=== PATIENT | male | born 1965 | race Caucasian/White ===

== ENCOUNTER 2019-03-09 12:49 | Inpatient (IN) | payer MEDICAID ==
[2019-03-09] VITALS (9 sets, daily range): BP systolic 107–146
[~2019-03-09] VITALS: Ht 165.1 cm; Wt 143.0 kg
--- NOTE | 2019-03-09 13:00 | NUR ---
Placed in room 01 . Placed on satellite project site monitor, blood pressure machine and pulse oximeter. To gown for exam. Side rails up.
--- NOTE | 2019-03-09 13:35 | NUR ---
Pt AAOx4 presents to ED via wheelchair accompanied by sister c/o generalized weakness, "bloating," intermittent shortness of breath, increased difficulty when ambulating at home. Pt SaO2 88% on RA while laying flat. Pt positioned in high kapoor's and placed on 2L NC. SaO2 increased to 99%. Pt denies medical history as he hasn't seen a PMD in over 34 years. Pt morbidly obese. Edema noted to bilateral lower extremities. Skin dry and flaky, speaking in full sentences. No other injuries/complaints per pt/noted.
--- NOTE | 2019-03-09 13:37 | NUR ---
ER Dr. Trevino at bedside examining patient.
[2019-03-09 14:09] LABS: BASOPHILS # (AUTO) 0.1 K/uL (0.0-0.2); BASOPHILS % (AUTO) 1.2 % (0.0-2.0); EOSINOPHILS # (AUTO) 0.2 K/uL (0.0-0.4); EOSINOPHILS % (AUTO) 3.6 % (0.0-4.0); HEMATOCRIT 28.5 % (36-54); HEMOGLOBIN 9.5 g/dL (14.0-18.0); LYMPHOCYTES # (AUTO) 0.7 K/uL (1.0-5.5); LYMPHOCYTES % (AUTO) 14.2 % (20.5-51.5); MEAN CORPUSCULAR HEMOGLOBIN 31 pg (27-31); MEAN CORPUSCULAR HGB CONC 34 % (32-36); MEAN CORPUSCULAR VOLUME 93 fL (79.0-98.0); MONOCYTES # (AUTO) 0.3 K/uL (0.0-1.0); MONOCYTES % (AUTO) 6.5 % (1.7-9.3); NEUTROPHILS # (AUTO) 3.9 K/uL (1.8-7.7); NEUTROPHILS % (AUTO) 74.5 % (40.0-70.0); PLATELET COUNT (AUTO) 262 K/uL (130-430); RED BLOOD CELL COUNT(AUTO) 3.08 MIL/uL (4.2-6.2); RED CELL DISTRIBUTION WIDTH 15.7 % (9.0-15.0); WHITE BLOOD COUNT (AUTO) 5.2 K/uL (4.8-10.8)
[2019-03-09 14:20] LABS: CALCIUM 9.5 mg/dL (8.4-11.0); CHLORIDE 94 mmol/L (98-107); CREATININE 1.24 mg/dL (0.55-1.30); GLUCOSE 108 mg/dL (70-99); POTASSIUM 3.9 mmol/L (3.5-5.1); SODIUM SERUM 132 mmol/L (136-145); UREA NITROGEN, BLOOD 19 mg/dL (8-21)
[2019-03-09 14:23] LABS: ANION GAP < 3 (5-15); GFR AFRICAN AMERICAN 78 mL/min (>90)
[2019-03-09 14:26] LABS: ALANINE AMINOTRANSFERASE 51 U/L (12-78); ALBUMIN 4.3 g/dL (3.4-4.8); ASPARTATE AMINOTRANSFERASE 90 U/L (10-37); TOTAL BILIRUBIN 0.2 mg/dL (0.0-1.0)
[2019-03-09 14:30] LABS: INR 1.1 (0.80-1.20); PROTHROMBIN TIME 10.8 SECS (9.5-12.5)
--- NOTE | 2019-03-09 14:37 | NUR ---
Pt intermittently bradycardiac < 40 when pt falls asleep. When aroused, pt heart rate increases >70. Denies pain. Denies taking medication/home oxygen. Dr. Trevino notified.
--- NOTE | 2019-03-09 14:39 | NUR ---
Dr. Trevino speaking with Dr. Rodriguez
--- NOTE | 2019-03-09 15:16 | NUR ---
composite bond technician at bedside to take patient via gurney for CT scan.
[2019-03-09] MEDS ORDERED: IOHEXOL 350 mgI/mL, 150 ML INFUS..BTL IV ONE (15:23)
--- NOTE | 2019-03-09 15:32 | NUR ---
Pt returned from radiology in stable condition
--- NOTE | 2019-03-09 16:42 | NUR ---
Per monitor, SpO2 is 83% on BiPAP. RT called to bedside to assess patient.
--- NOTE | 2019-03-09 17:12 | NUR ---
Per Dr. Rodriguez, the patient will be admitted under Dr. Shyanne Lucia instead.
--- NOTE | 2019-03-09 18:01 | NUR ---
Dr. Lucia at bedside examining pt.
--- NOTE | 2019-03-09 18:53 | NUR ---
AT 1810 P.M, ADMITTED PATIENT FROM [facility] , RECEIVED NURSING REPORT FROM VIMAL Newton, THIS IS A 54 YEARS OLD MALE,CHIEF COMPLAINED HAD SHORT OF BREATH FOR 6 MONTHS, THE PAST HISTORY UNKNOWN ,DIAGNOSIS : RESPIRATORY FAILURE, ANASARCA, PATIENT IS ALERT, ORIENTED X4, VERBAL RESPONSE , ABLE TO MAKE NEEDS KNOWN, VITAL SIGN : TEMPERATURE 97.4.F, H.R 69, RESPIRATORY RATE 18, B.P 134/81 MMHG, O2 SAT. 95%, ORDERED ON BI-PAP I 12, E 6, BUR 12, FIO2 28%, GIVE PATIENT ENVIRONMENT ORIENTATION, CHG BED BATH DONE, CALL LIGHT IN REACH, RAILS UP, KEEP CLOSE MONITOR
--- NOTE | 2019-03-09 19:05 | NUR ---
WAS REPORTED TO Dr. MO, PATIENT WANT TO CHANGE TO FULL CODE, DOCTOR AWARE, ORDERED CODE STATUS : FULL CODE FOR PATIENT
--- NOTE | 2019-03-09 19:10 | NUR ---
PM SHIFT ASSESSMENT Pt easily arousable, alert and oriented. On bipap, RR even and unlabored. SR on monitor. Skin warm and dry. IV intact. Belongings at bedside. Will continue to monitor.
--- NOTE | 2019-03-09 19:23 | NUR ---
GIVE COMPLETE NURSING REPORT TO BRIDGE WORKER APPRENTICE RJuanN
[2019-03-09] MEDS: D5/0.45 NS 1,000 ML IV SCH (19:42)
--- NOTE | 2019-03-09 20:08 | NUR ---
Paged Dr. Kapil MD made aware of patients current status. New orders given.
--- NOTE | 2019-03-09 21:10 | NUR ---
Dr. Dick here to see patient. New orders received.
[2019-03-09] MEDS ORDERED: acetaZOLAMIDE 250 MG TABLET (DIAMOX) PO SCH (21:30)
[2019-03-09] MEDS ORDERED: POTASSIUM CHLORIDE 20 MEQ/PKT PACKET PO SCH (21:30)
[2019-03-09] MEDS ORDERED: FUROSEMIDE 40 MG/4 ML VIAL IVP SCH (21:30)
[2019-03-10] VITALS (24 sets, daily range): BP systolic 90–126
[2019-03-10 06:43] LABS: CALCIUM 9.2 mg/dL (8.4-11.0); CREATININE 1.1 mg/dL (0.55-1.30); POTASSIUM 3.9 mmol/L (3.5-5.1)
--- NOTE | 2019-03-10 07:12 | NUR ---
ENDORSEMENT Pt care endorsed to GABRIELLE Worthington using nursing SBAR.
--- NOTE | 2019-03-10 07:13 | NUR ---
RECEIVED NURSING REPORT FROM DHAVAL HAQUE R.N
--- NOTE | 2019-03-10 08:07 | NUR ---
PAGED Dr. JULIEN REGARDING OF ABNORMAL ABG RESULT, WAITING FOR DOCTOR CALL BACK
--- NOTE | 2019-03-10 08:15 | NUR ---
DR. JULIEN ORDERED CHANGE TO AZAP T.V 550 , RATE 20, AND FOLLOW UP ABG AFTER 1 HOUR Addendum: 03/10/19 at 0939 by Abraham Shane RN DR. JULIEN ORDERED CHANGE TO AVAPS T.V 550 , RATE 20, AND FOLLOW UP ABG AFTER 1 HOUR
--- NOTE | 2019-03-10 08:15 | NUR ---
RT NOTES BIPAP to AVAPS 550 R 20. Will monitor pt.
--- NOTE | 2019-03-10 08:28 | NUR ---
Nutrition Update Gilbert Scale 14 noted. Pt admitted for respiratory failure, anasarca. Diet: NPO BMI: 56.6 kg/m2 RD to follow per nutrition care standards.
--- NOTE | 2019-03-10 08:44 | NUR ---
AT 0835 A.M, FINISHED 2 D ECHO CARDIOGRAM AT BEDSIDE, E.F 66 %, WAS REPORTED TO AWARE, ORDERED CONSULT Dr. MASSEY, DR. MASSEY IS AWARE
[2019-03-10] MEDS: POTASSIUM CHLORIDE 20 MEQ/PKT PACKET PO SCH ×2 (09:14→22:21)
[2019-03-10] MEDS: FUROSEMIDE 40 MG/4 ML VIAL IVP SCH ×2 (09:14→22:20)
[2019-03-10] MEDS: acetaZOLAMIDE 250 MG TABLET (DIAMOX) PO SCH ×2 (09:14→22:20)
--- NOTE | 2019-03-10 09:15 | NUR ---
Call out to Dr. Lucia to report TSH > 100.
--- NOTE | 2019-03-10 10:00 | NUR ---
DR. MO ORDERED CONSULT DR. DAVILA
--- NOTE | 2019-03-10 12:30 | NUR ---
DR. JULIEN SEE PATIENT, ORDERED KEEP NPO, FOLLOW UP CBC, CMP, ABG, CHEST X-RAY IN A.M
--- NOTE | 2019-03-10 12:53 | NUR ---
Paper Rewinder Discharge Plan/ICU Assessment begun. MANAGER WELLNESS met with patient at bedside. Patient needed to be roused and had a difficult time talking. He verified that he wants to make decisions for himself and does not want MANAGER WELLNESS to phone his father or sister about discharge plans. He confirmed he want full code status. He confirmed he lives with his father. He has not had medical care for many years. He has only been able to ambulate very short distances. Patient requested MANAGER WELLNESS come back the next day to complete the assessment. Patient should be assessed for depression and will need resources, [facility] as [facility]. Will follow up.
[2019-03-10] MEDS: ACETAMINOPHEN 325 MG TABLET PO PRN (13:43)
--- NOTE | 2019-03-10 16:30 | NUR ---
AT 1623 P.M, SEE PATIENT, ORDERED FOLLOW UP LAB. T4,TSH IN A.M, AND START LEVOTHYROXINE THERAPY
[2019-03-10] MEDS ORDERED: LEVOTHYROXINE SODIUM 0.1 MG VIAL IVP ONE (16:45)
[2019-03-10] MEDS: D5/0.45 NS 1,000 ML IV SCH (17:03)
--- NOTE | 2019-03-10 18:50 | NUR ---
DR. MO SEE PATIENT , WAS SIGNED FULL CODE STATUS FOAM IN THE CHART
--- NOTE | 2019-03-10 19:16 | NUR ---
GIVE COMPLETE NURSING REPORT TO MATERIALS RECYCLER PIPPA Newotn
--- NOTE | 2019-03-10 20:00 | NUR ---
PATIENT WAS ACCEPTED AND ASSESS DONE PATIENT ALERT AND AWAKE, RESPOND TO ALL COMMANDS ON NASAL CANNULA, WAS ON BIPAP, HAD REMOVE HER SELF, NO SOB OR RESP. DISTRESS , PATIENT IS OBESITY ,WILL MOVE SELF FAIRLY WELL IN THE BED AND CAN TURN SELF TO HELP WITH HER, STABLE 2200 NOTICE LOWER LEG RED WARM TO TOUCH AND SWOLLEN FROM THE KNEE DOWN , BILATERAL FOOT ALSO SWOLLEN, STAT HIS BIG TOE WAS HURTING, THE PATIENT DOSE NOT HAVE GOUTE , PATIENT VERY NEEDED WANTING DIFFERENT THING AT INTERVALS, WILL CALL Q 30MIN-60 MIN STABLE PATIENT HAS NO TEMP. WBC IS 5.2 STABLE 0000 NO CHANGES WITH THE PATIENT 0130 COMPLETED AM CARE WAS GIVEN, PATIENT USED THE BEDPAN , HAD FILLED THE BEDPAN UP WITH VERY SOFT BROWN STOOL , ALSO THE BED WAS WET,, WHEN URINATE SOME OF THE URINE GOTTEN ON THE BED PATIENT WAS ABLE TO PULL SELF UP IN THE BED , LINEN CHANGED SKIN CLEAN ,PATIENT MORE RELAXED THAN BEFORE, RESTING , ASLEEP WILL CONTINUED WITH PLAN OF CARE, STABLE
[2019-03-11] VITALS (23 sets, daily range): BP systolic 89–130
[2019-03-11] MEDS: D5/0.45 NS 1,000 ML IV SCH (02:30)
--- NOTE | 2019-03-11 04:00 | NUR ---
PATIENT IS RESTING WITH THE BIPAP INTACT, NOTICE HEART RATE IN THE 40, STABLE NO CHEST PAIN BP ALSO LOW, 89/37 STABLE WILL CONTINUED WITH PLAN OF CARER STABLE PATIENT IS ASKING FOR SOMETHING TO EAT REMAINED NPONEED TO FOLLOW UP WITH THIS INFORMATION WITH THE DOCTOR, BENOIT CONSUMED ICE CHIP WELL BY SELF
[2019-03-11 06:39] LABS: BASOPHILS # (AUTO) 0.1 K/uL (0.0-0.2); BASOPHILS % (AUTO) 1.4 % (0.0-2.0); EOSINOPHILS # (AUTO) 0.2 K/uL (0.0-0.4); HEMATOCRIT 31.4 % (36-54); HEMOGLOBIN 10.4 g/dL (14.0-18.0); LYMPHOCYTES % (AUTO) 17.3 % (20.5-51.5); MEAN CORPUSCULAR HEMOGLOBIN 31 pg (27-31); MEAN CORPUSCULAR HGB CONC 33 % (32-36); MEAN CORPUSCULAR VOLUME 94 fL (79.0-98.0); MONOCYTES # (AUTO) 0.5 K/uL (0.0-1.0); MONOCYTES % (AUTO) 7.6 % (1.7-9.3); NEUTROPHILS # (AUTO) 4.2 K/uL (1.8-7.7); NEUTROPHILS % (AUTO) 69.7 % (40.0-70.0); RED BLOOD CELL COUNT(AUTO) 3.35 MIL/uL (4.2-6.2); RED CELL DISTRIBUTION WIDTH 15.9 % (9.0-15.0)
--- NOTE | 2019-03-11 07:50 | NUR ---
AM ASSESSMENT PT ALERT, DENIES BODY DISCOMFORT, NO SHORTNESS OF BREATH, NO NAUSEA, HELPED PT SIT UPRIGHT, ON O2 VIA NASAL CANNULA, AFEBRILE, EXTREMITIES ACTIVE ON MOTION, CELLULITIS TO LOWER EXTREMITIES, HEELS VERY DRY AND CRACKED, DRY SCAB TO LOWER LEGS SEEN, PILLOW UNDER LEGS.
[2019-03-11 07:55] LABS: ALBUMIN 4.1 g/dL (3.4-4.8); CALCIUM 9.4 mg/dL (8.4-11.0); CREATININE 1.09 mg/dL (0.55-1.30); FREE T4 (FREE THYROXINE) 0.2 ng/dl (0.8-1.5); POTASSIUM 3.7 mmol/L (3.5-5.1); TOTAL BILIRUBIN 2.1 mg/dL (0.0-1.0)
--- NOTE | 2019-03-11 08:51 | NUR ---
NUT BLANKER OPERATOR DR MASSEY AT BEDSIDE EXAMINING PT.
[2019-03-11] MEDS: POTASSIUM CHLORIDE 20 MEQ/PKT PACKET PO SCH (09:27)
[2019-03-11] MEDS: acetaZOLAMIDE 250 MG TABLET (DIAMOX) PO SCH (09:36)
[2019-03-11] MEDS ORDERED: *LOVENOX 1MG/KG Q24H/PHARMACY XX ONE (09:45)
--- NOTE | 2019-03-11 09:50 | NUR ---
RT NOTES O2 to 2L, per Dr Lima, keep sat. on the low side and BIPAP NOC and PRN if/when pt is lethargic.
--- NOTE | 2019-03-11 09:58 | NUR ---
CONSULT PAGED CONSULTING MD: Gregory WATERS CONSULTING SPECIALITY: ID SPOKE TO: SABINO DIALED: [phone] ORDERED BY; Shyanne MCCLELLAN FAXED FACE SHEET TO: [phone]
--- NOTE | 2019-03-11 10:00 | NUR ---
BENEFITS MANAGER DR JULIEN AT BEDSIDE, NEW ORDERS RECEIVED.
--- NOTE | 2019-03-11 10:10 | NUR ---
DIET. FOOD TRAY BROUGHT IN, BOWL OF OATMEAL, MILK, CRANBERRY JUICE, APPLE JUICE.
[2019-03-11] MEDS ORDERED: ENOXAPARIN SODIUM 40 MG/0.4 ML SYRINGE SUBCUT ONE (10:30)
--- NOTE | 2019-03-11 11:12 | NUR ---
SS NOTES: SOCIAL SECRETARY was referred by CM to see patient for DCP/possible depression. SOCIAL SECRETARY met with patient at bedside. Pt was alert and oriented x4. Pt was cooperative with average eye contact. Pt appeared to be disheveled with normal mood and appropriate affect. Pt is a 54 y/o single male who came in via ED due to swelling on legs. Pt states his legs have been red and swollen for 3 years. Pt states he is aware of his edema but had researched it online and remedied it himself. Pt believed that "because I am young, it would just heal on its own". Pt stated his family convinced him to come to the hospital. Pt stated in the "past few weeks, I've been losing my energy level" and lightheadedness. Pt stated he used to "walk a lot" but when pt gained weight, he "lost the desire to walk". Pt lives in a one kenisha home with 1 step to get to the front door. Pt stated he is independent with his ADL's and does not own any DME. Pt stated he used to drive 30 years ago but his drivers license was revoked due to reckless driving and alcohol related. Pt states he used to have a problem with alcohol and last intake was 15 years ago and denies drug use. Pt denies history or current mental health/depression and stated he is a "private person" and does not identify anybody as his support system. Pt states he does not have a source of income but his father helps him and is a "good provider". SOCIAL SECRETARY educated pt on the importance of follow up care and encouraged pt to call [facility] to make an appointment; pt agreed and was provided [facility] ID number. SOCIAL SECRETARY also encouraged pt the importance of providing [facility] of requirements to obtain full scope Medi-Prabhjot (provided Cristofer's phone number). SOCIAL SECRETARY provided pt with [facility] List, Outpt Mental health, [facility] phone number, phone number and Advanced Directive. No further SS needs identified at this time, but will remain available when needed. Addendum: 03/11/19 at 1141 by Hien CONTRERAS Pt does not have a [facility] of SNF or [facility] if needed.
[2019-03-11 11:59] LABS: PLATELET COUNT (AUTO) 287 K/uL (130-430)
[2019-03-11] MEDS: LEVOTHYROXINE SODIUM 0.1 MG VIAL IVP SCH (13:15)
--- NOTE | 2019-03-11 13:38 | NUR ---
Dietitian Recommendations *Continue Cardiac diet per MD. Please se Nutritional Assessment for details. HALFWAY, RD
--- NOTE | 2019-03-11 15:00 | NUR ---
LOC. SATURATION IN THE HIGH 80'S, CALLED OUT PT'S NAME, HE TURNED HIS HEAD BACK, EYES DROOPY, ENCOURAGED TO TAKE DEEP BREATHS, PT ABLE TO DEMONSTRATE WELL, SAT WENT UP TO THE NINETY'S.
--- NOTE | 2019-03-11 17:50 | NUR ---
[facility]ED PT TO ROOM 100-A, VIA BED, ON O2 AT 2L/MIN NASAL CANNULA, ALL PERSONAL BELONGINGS REMOVED FROM ICU AND TAKEN INTO ASSIGNED ROOM, BAGS TAGGED WITH PT'S NAME. CARE ENDORSED TO GABRIELLE ZEE.
--- NOTE | 2019-03-11 19:25 | NUR ---
PM SHIFT ASSESSMENT Pt is sleepy but easily arousable, alert and oriented. Pt is on O2 2L NC, RR even and unlabored. Skin warm and dry. IVF infusing. Safety precautions in place, call light within reach. Will continue to monitor.
--- NOTE | 2019-03-11 19:35 | NUR ---
Closing Notes Patient endorsed to manufacturing shift supervisor RN using SBAR format. Patient resting and in no signs of distress at this time.
[2019-03-11] MEDS ORDERED: ATROPINE SULFATE 1 MG/10 ML SYRINGE IVP ONE ×2 (19:45→19:56)
[2019-03-11] MEDS ORDERED: DOPamine PREMIX 250 ML IV PRN (19:45)
--- NOTE | 2019-03-11 19:45 | NUR ---
BRADYCARDIA Pt became bradycardic, HR in the 30's. Dr. Curtis here and ordered Atropine 0.5mg IVP stat and transfer to ICU.
--- NOTE | 2019-03-11 20:00 | NUR ---
Atropine 0.5mg IVP given per Dr. Tapia order. HR now SR in the 90's. No signs of acute distress noted. Will get patient ready for transfer to ICU.
[2019-03-11] MEDS: IPRATROPIUM/ALBUTEROL SULFATE 3 ML AMPUL.NEB (DUONEB) INH SCH ×2 (20:24→23:50)
--- NOTE | 2019-03-11 20:45 | NUR ---
TRANSFER PT TRANSFERRED FROM [facility] AT THIS TIME VIA BED. REPORT RECEIVED FROM FREDDY ANTHONY. RECEIVED PT WITH EYES OPEN, AAOX4, AND ABLE TO VERBALIZE NEEDS. PT ON 2L NC. LFA 20G TO SL, R HAND 22G INFUSING D5 1/2 NS @ 30 CC/HR. PT DENIES ANY PAIN OR DISCOMFORT AT THIS TIME. HOB ELEVATED, BED IN LOWEST POSITION, CALL LIGHT IN REACH.
--- NOTE | 2019-03-11 20:50 | NUR ---
TRANSFER Pt transferred with second RN to ICU bed 4. VSS. All belongings sent with patient. Report given bedside.
[2019-03-11] MEDS: ENOXAPARIN SODIUM 40 MG/0.4 ML SYRINGE SUBCUT SCH (21:10)
--- NOTE | 2019-03-11 22:50 | NUR ---
BEDSIDE COMMODE PT STATES HE NEEDS HAVE A BOWEL MOVEMENT AT THIS TIME. PT DENIES USE OF THE BEDPAN AND SAFETY EDUCATION GIVEN. PT INSISTS ON USING TOILET. BEDSIDE COMMODE OBTAINED AND PT ASSISTED TO USE COMMODE. WHILE STANDING PT BECAME WEAK AND FELL TO THE FLOOR. NO LOC OR INJURY TO HEAD NOTED. PT ABLE TO GET BACK TO HIS FEET AND ASSISTED BACK INTO BED. RED SCRATCH NOTED ON PTS BACK D/T FALL, NO OPEN WOUND NOTED OR ACTIVE BLEEDING. PT AGREEABLE TO USE BED ALBERTO AT THIS TIME AND RE-EDUCATED ON PT SAFETY AND THAT THE BEDPAN IS THE SAFEST OPTION AT THIS TIME. PT VERBALIZES UNDERSTANDING AND WILL CONTINUE TO MONITOR PT.
[2019-03-12] VITALS (22 sets, daily range): BP systolic 89–174
--- NOTE | 2019-03-12 00:40 | NUR ---
O2 CHANGES PT PLACED ON AVAPS AT THIS TIME BY RT. WILL CONTINUE TO MONITOR PT.
--- NOTE | 2019-03-12 01:00 | NUR ---
DR. IVORY MCGOWAN AT BEDSIDE TO EVALUATE PT. ORDERS RECEIVED AND WILL BE CARRIED OUT ORDERED.
--- NOTE | 2019-03-12 01:10 | NUR ---
DR. SHILPA MCGOWAN ORDERS CLARIFIED AT THIS TIME. NEW ORDERS RECEIVED AND WILL BE CARRIED OUT ORDERED.
[2019-03-12] MEDS ORDERED: THEOPHYLLINE ANHYDROUS 200 MG TAB.SR.12H PO SCH ×2 (01:30→06:00)
[2019-03-12] MEDS: IPRATROPIUM/ALBUTEROL SULFATE 3 ML AMPUL.NEB (DUONEB) INH SCH ×5 (02:44→23:00)
[2019-03-12] MEDS: ACETAMINOPHEN 325 MG TABLET PO PRN (04:09)
[2019-03-12] MEDS ORDERED: THEOPHYLLINE ANHYDROUS 200 MG CAP.ER.24H PO SCH (06:00)
[2019-03-12 06:04] LABS: BASOPHILS % (AUTO) 0.7 % (0.0-2.0); EOSINOPHILS # (AUTO) 0.3 K/uL (0.0-0.4); EOSINOPHILS % (AUTO) 4.5 % (0.0-4.0); HEMATOCRIT 31.8 % (36-54); HEMOGLOBIN 10.4 g/dL (14.0-18.0); LYMPHOCYTES # (AUTO) 0.9 K/uL (1.0-5.5); MEAN CORPUSCULAR HEMOGLOBIN 31 pg (27-31); MEAN CORPUSCULAR HGB CONC 33 % (32-36); MEAN CORPUSCULAR VOLUME 94 fL (79.0-98.0); MONOCYTES # (AUTO) 0.5 K/uL (0.0-1.0); MONOCYTES % (AUTO) 8.7 % (1.7-9.3); NEUTROPHILS # (AUTO) 4.5 K/uL (1.8-7.7); NEUTROPHILS % (AUTO) 72.1 % (40.0-70.0); PLATELET COUNT (AUTO) 286 K/uL (130-430); RED BLOOD CELL COUNT(AUTO) 3.36 MIL/uL (4.2-6.2); RED CELL DISTRIBUTION WIDTH 16.1 % (9.0-15.0); WHITE BLOOD COUNT (AUTO) 6.2 K/uL (4.8-10.8)
--- NOTE | 2019-03-12 06:17 | NUR ---
DR. CHELY MCGOWAN MADE AWARE OF PT FALL EARLIER TONIGHT. NO NEW ORDERS RECEIVED. WILL CONTINUE TO MONITOR PT.
[2019-03-12 06:19] LABS: ALANINE AMINOTRANSFERASE 45 U/L (12-78); ALBUMIN 4.5 g/dL (3.4-4.8); ANION GAP 2 (5-15); ASPARTATE AMINOTRANSFERASE 73 U/L (10-37); CALCIUM 9.4 mg/dL (8.4-11.0); CHLORIDE 94 mmol/L (98-107); CREATININE 1.22 mg/dL (0.55-1.30); FREE T4 (FREE THYROXINE) 0.3 ng/dl (0.8-1.5); GLUCOSE 121 mg/dL (70-99); POTASSIUM 3.5 mmol/L (3.5-5.1); SODIUM SERUM 135 mmol/L (136-145); UREA NITROGEN, BLOOD 12 mg/dL (8-21)
[2019-03-12 06:28] LABS: GFR AFRICAN AMERICAN 79 mL/min (>90)
[2019-03-12 07:08] LABS: TOTAL BILIRUBIN 0.4 mg/dL (0.0-1.0)
[2019-03-12 07:24] LABS: C-REACTIVE PROTEIN QUANT < 0.2 mg/dL (0-0.5)
--- NOTE | 2019-03-12 07:36 | NUR ---
ENDORSEMENT BEDSIDE REPORT GIVEN TO AM RN USING SBAR APPROACH.
--- NOTE | 2019-03-12 08:59 | NUR ---
Physical Therapy order has been received. Awaiting results of the Venous doppler test to rule out DVT in the BLE's.
[2019-03-12] MEDS: LEVOTHYROXINE SODIUM 0.1 MG VIAL IVP SCH (09:17)
[2019-03-12] MEDS: ENOXAPARIN SODIUM 40 MG/0.4 ML SYRINGE SUBCUT SCH ×2 (09:20→23:59)
[2019-03-12 09:59] LABS: ERYTHROCYTE SEDIMENTATION RATE 39 MM/HR (0-15)
--- NOTE | 2019-03-12 13:45 | NUR ---
Paged Dr. Curtis for orders, spoke with exchange.
[2019-03-12] MEDS ORDERED: THEOPHYLLINE ANHYDROUS 300 MG TAB.SR.12H PO ONE (14:30)
[2019-03-12] MEDS ORDERED: FUROSEMIDE 20 MG/2 ML VIAL IVP ONE (15:00)
[2019-03-12] MEDS ORDERED: acetaZOLAMIDE 250 MG TABLET (DIAMOX) PO ONE (15:00)
[2019-03-12] MEDS: EMOLLIENT COMBINATION NO.73 78 GM CREAM..G. TP SCH ×2 (17:18→21:00)
--- NOTE | 2019-03-12 18:00 | NUR ---
DR WANG WANTED THE DOPAMINE OFF AND THE PTS BLOOD PRESSURE DID NOT DROP. THE PTS APPETITE IMPROVED AT LUNCH. HE IS STILL EATING DINNER. HE WAS STABLE ON O2 VIA NC ALL DAY. I DID GIVE THE PT A CHG BATH AND APPLIED EUCERIN INTENSIVE LOTION TO THE LOWER EXTREMITY CELLULITIS. THE PT IS ALERT AND ORIENTATED AND HAS NO C/O.
--- NOTE | 2019-03-12 19:45 | NUR ---
Initial PM note] received patient AAO X4 resting in bed. Able to reposition on his own. Complying with treatment. O2 NC 2l in place with saturations 98%. VSS as per monitor and NSR. Using urinal when voiding. Denies any pain or discomfort. IV site L forearm appears to be non patent and requires to be discontinued. New site will be started as patient has agreed. will continue to monitor as per unit protocol.
[2019-03-12] MEDS: acetaZOLAMIDE 250 MG TABLET (DIAMOX) PO SCH (21:00)
--- NOTE | 2019-03-12 21:00 | NUR ---
new IV site started R AC #20g. Patient tolerated well.
[2019-03-12] MEDS: THEOPHYLLINE ANHYDROUS 300 MG TAB.SR.12H PO SCH (23:56)
[2019-03-13] VITALS (24 sets, daily range): BP systolic 105–142
[2019-03-13] MEDS: D5/0.45 NS 1,000 ML IV SCH ×2 (00:05→17:26)
--- NOTE | 2019-03-13 01:00 | NUR ---
Placed by RT on AVAPS with settings Rate 20, TV 550, Epap 5, FIO2 28% via face mask. patient tolerating at this time. will continue to monitor.
--- NOTE | 2019-03-13 01:15 | NUR ---
Not tolerating AVAPS reporting "it is very unconfortable and noisy; I can't sleep". RT was notified and AVAPS was removed for now. Placed on Nasal canula 2 L/min and saturating 98%.
[2019-03-13] MEDS: IPRATROPIUM/ALBUTEROL SULFATE 3 ML AMPUL.NEB (DUONEB) INH SCH ×6 (04:05→23:00)
--- NOTE | 2019-03-13 04:45 | NUR ---
Partial bath given with linen change. repositioned for comfort with patient's assist and second nurse. patient tolerated well. will continue to monitor.
[2019-03-13 06:24] LABS: BASOPHILS # (AUTO) 0.1 K/uL (0.0-0.2); BASOPHILS % (AUTO) 1.1 % (0.0-2.0); EOSINOPHILS # (AUTO) 0.2 K/uL (0.0-0.4); EOSINOPHILS % (AUTO) 4.7 % (0.0-4.0); HEMOGLOBIN 9.7 g/dL (14.0-18.0); LYMPHOCYTES # (AUTO) 1.1 K/uL (1.0-5.5); LYMPHOCYTES % (AUTO) 22.8 % (20.5-51.5); MEAN CORPUSCULAR HEMOGLOBIN 31 pg (27-31); MEAN CORPUSCULAR HGB CONC 34 % (32-36); MEAN CORPUSCULAR VOLUME 94 fL (79.0-98.0); MONOCYTES # (AUTO) 0.5 K/uL (0.0-1.0); MONOCYTES % (AUTO) 9.6 % (1.7-9.3); NEUTROPHILS % (AUTO) 61.8 % (40.0-70.0); PLATELET COUNT (AUTO) 262 K/uL (130-430); RED CELL DISTRIBUTION WIDTH 16.3 % (9.0-15.0); WHITE BLOOD COUNT (AUTO) 4.8 K/uL (4.8-10.8)
--- NOTE | 2019-03-13 06:39 | NUR ---
No changes in neurological status noted from previous assessment. Denies SOB at this time with O2 nasal canula at 2 L/min. SR in the monitor. Total urine output 1550 cc. will continue to monitor.
[2019-03-13 08:13] LABS: ALANINE AMINOTRANSFERASE 45 U/L (12-78); ALBUMIN 4.4 g/dL (3.4-4.8); ANION GAP 6 (5-15); ASPARTATE AMINOTRANSFERASE 63 U/L (10-37); CALCIUM 9.3 mg/dL (8.4-11.0); CHLORIDE 94 mmol/L (98-107); CREATININE 1.07 mg/dL (0.55-1.30); FREE T4 (FREE THYROXINE) 0.3 ng/dl (0.8-1.5); GLUCOSE 108 mg/dL (70-99); POTASSIUM 3.4 mmol/L (3.5-5.1); SODIUM SERUM 135 mmol/L (136-145); TOTAL BILIRUBIN 0.2 mg/dL (0.0-1.0); UREA NITROGEN, BLOOD 9 mg/dL (8-21)
[2019-03-13 08:20] LABS: GFR AFRICAN AMERICAN 92 mL/min (>90)
[2019-03-13 08:39] LABS: ERYTHROCYTE SEDIMENTATION RATE 40 MM/HR (0-15)
--- NOTE | 2019-03-13 09:00 | NUR ---
ABG SHOWED A CO2 IN THE 70S. I DID INFORM DR ANDREWS AND DR JULIEN.
[2019-03-13 09:02] LABS: C-REACTIVE PROTEIN QUANT < 0.2 mg/dL (0-0.5)
[2019-03-13] MEDS: FUROSEMIDE 20 MG/2 ML VIAL IVP SCH (09:56)
[2019-03-13] MEDS: acetaZOLAMIDE 250 MG TABLET (DIAMOX) PO SCH ×2 (09:57→20:59)
[2019-03-13] MEDS: LEVOTHYROXINE SODIUM 0.1 MG VIAL IVP SCH (09:58)
[2019-03-13] MEDS: THEOPHYLLINE ANHYDROUS 300 MG TAB.SR.12H PO SCH ×2 (09:59→20:59)
[2019-03-13] MEDS: ENOXAPARIN SODIUM 40 MG/0.4 ML SYRINGE SUBCUT SCH ×2 (10:00→21:00)
--- NOTE | 2019-03-13 12:13 | NUR ---
RN IS TO CALL MD TO GET A NEW PHYSICAL THERAPY ORDER FOR EVALUATION BECAUSE OF THE PATIENT'S TRANSFER BACK TO THE ICU AFTER THE INITIAL ORDER WAS WRITTEN.
[2019-03-13] MEDS: EMOLLIENT COMBINATION NO.73 78 GM CREAM..G. TP SCH ×2 (17:00→21:00)
[2019-03-13] MEDS ORDERED: POTASSIUM CHLORIDE 20 MEQ TAB.PRT.SR PO ONE (17:00)
--- NOTE | 2019-03-13 19:48 | NUR ---
EARLIER I SPOKE TO DR MO WHO CONFIRMED HE WANTED THE PT TO HAVE PT EVALUATION. I TRIED TO PUT THE ORDER BUT WAS UNSUCESSFULL. THE CHARGE NURSE OF THE DAY COULD NOT PUT IT IN ORIGINALLY AND THEN THE NIGHT CHARGE STATED THEIR WAS NO PT DONE IN THE ICU.
--- NOTE | 2019-03-13 19:50 | NUR ---
Initial PM note Received patient after report from registry nurse Ugo ANTHONY.Resting in bed with eyes closed but easy to arouse. AAO x 4, denies pain or discomfort at this time. No signs of respiratory distress noted as patient continues with O2 via nasal canula at 2 L/min. Able to reposition by self. Using urinal for voiding independently. IVF infusing to R AC 20g; no signs of infiltration noted. call light within reach, bed set at lowest settings. Will continue to monitor as per unit protocol.
[2019-03-14] VITALS (14 sets, daily range): BP systolic 114–145
[2019-03-14] MEDS: IPRATROPIUM/ALBUTEROL SULFATE 3 ML AMPUL.NEB (DUONEB) INH SCH ×6 (02:12→23:57)
[2019-03-14 06:59] LABS: BASOPHILS # (AUTO) 0.1 K/uL (0.0-0.2); BASOPHILS % (AUTO) 1.4 % (0.0-2.0); EOSINOPHILS # (AUTO) 0.3 K/uL (0.0-0.4); EOSINOPHILS % (AUTO) 5.3 % (0.0-4.0); HEMOGLOBIN 9.6 g/dL (14.0-18.0); LYMPHOCYTES # (AUTO) 0.9 K/uL (1.0-5.5); LYMPHOCYTES % (AUTO) 16.7 % (20.5-51.5); MEAN CORPUSCULAR HEMOGLOBIN 31 pg (27-31); MEAN CORPUSCULAR HGB CONC 33 % (32-36); MEAN CORPUSCULAR VOLUME 94 fL (79.0-98.0); MONOCYTES # (AUTO) 0.5 K/uL (0.0-1.0); MONOCYTES % (AUTO) 9.1 % (1.7-9.3); NEUTROPHILS # (AUTO) 3.5 K/uL (1.8-7.7); NEUTROPHILS % (AUTO) 67.5 % (40.0-70.0); PLATELET COUNT (AUTO) 261 K/uL (130-430); RED BLOOD CELL COUNT(AUTO) 3.07 MIL/uL (4.2-6.2); RED CELL DISTRIBUTION WIDTH 15.7 % (9.0-15.0); WHITE BLOOD COUNT (AUTO) 5.1 K/uL (4.8-10.8)
[2019-03-14 07:16] LABS: ANION GAP 2 (5-15); CALCIUM 9.5 mg/dL (8.4-11.0); CHLORIDE 96 mmol/L (98-107); GLUCOSE 117 mg/dL (70-99); POTASSIUM 3.6 mmol/L (3.5-5.1); SODIUM SERUM 134 mmol/L (136-145); UREA NITROGEN, BLOOD 8 mg/dL (8-21)
--- NOTE | 2019-03-14 07:50 | NUR ---
AM ASSESSMENT. PT AFEBRILE, IVF INFUSING THRU RIGHT A/C, PT DENIES BODY DISCOMFORTS, MARINE EQUIPMENT TEST ENGINEER ON NSR, O2 IN USE 2L VIA NASAL CANNULA, CONTINUE TO MONITOR.
[2019-03-14 08:04] LABS: GFR AFRICAN AMERICAN 89 mL/min (>90)
[2019-03-14 08:05] LABS: C-REACTIVE PROTEIN QUANT < 0.2 mg/dL (0-0.5)
--- NOTE | 2019-03-14 08:50 | NUR ---
SOLAR PV INSTALLER DR MASSEY EXAMINING PATIENT.
[2019-03-14] MEDS: LEVOTHYROXINE SODIUM 0.1 MG VIAL IVP SCH (09:22)
[2019-03-14] MEDS: acetaZOLAMIDE 250 MG TABLET (DIAMOX) PO SCH ×2 (09:23→22:17)
[2019-03-14] MEDS: FUROSEMIDE 20 MG/2 ML VIAL IVP SCH (09:23)
[2019-03-14] MEDS: THEOPHYLLINE ANHYDROUS 300 MG TAB.SR.12H PO SCH (09:23)
[2019-03-14 10:22] LABS: ERYTHROCYTE SEDIMENTATION RATE 40 MM/HR (0-15)
[2019-03-14] MEDS: EMOLLIENT COMBINATION NO.73 78 GM CREAM..G. TP SCH ×2 (11:02→21:00)
[2019-03-14] MEDS: ENOXAPARIN SODIUM 40 MG/0.4 ML SYRINGE SUBCUT SCH ×2 (11:02→22:21)
[2019-03-14] MEDS: D5/0.45 NS 1,000 ML IV SCH (11:35)
--- NOTE | 2019-03-14 12:28 | NUR ---
Nutrition F/U RD reviewed pt's current EMR record including diet Hx, physician notes, nursing notes, pertinent labs/meds/procedures, care trends, and care activity. Admission Dx: Respiratory failure PMH: acute respiratory failure, hypoxia, CKD, hyperglycemia, cor pulmonale, hypothyroidism, bradycardia, severe obesity, anasarca, Pickwickian syndrome per physician notes Current Diet Order/Nutrition Support: Cardiac x3 days Subjective Info: Pt was seen earlier today. Per RN, pt ate about 75% of breakfast today. Pt reported that he had no difficulties chewing/swallowing. Pt voiced preferences for 1/2 portions of foods at each meal time, and dislike of milk and coffee, and would only like juice sent as beverages. RD noted in Comput[employer] and notified FNS staff. Pt reported no dietary restrictions at home, but tends not to eat sweets/breads. Pt reported that he has not been too mobile d/t having "heavy legs." RN reported that pt is currently telemetry status, and pending transfer once bed is available. Pt is not appropriate for nutrition education at this time, but may be a candidate once out of ICU. Current % PO: 50% average x5 meal records per EMR NEW Estimated Energy Expenditure (kcals/day) 9103-4619 kcal/day (MSJ x 1-1.2 for critical illness and obesity) Estimated Protein Required (g/day) 50-74 gm/day (0.8-1.2 gm/kg IBW for CKD, predialysis/critical illness) Estimated Fluid Required (l/day) Per MD (CKD) Problem/Etiology/Signs/Symptoms (modified) Morbid Obesity r/t lifestyle factors AEB BMI 56.6 kg/m2, 250% of IBW, and sedentary behavior. Expected Outcomes/Goals Monitor appetite and PO intake w/ goal of pt meeting at least 75% of estimated nutritional needs, labs trending WNL, normal GI function, skin integrity/wt maintenance. Dietitian Recommendations * Recommend continuing cardiac diet * 1/2 portions at meal times TID per pt preference Follow Up High Risk: F/U in 2-3 days Addendum: 03/14/19 at [address] CORRECTION: Follow Up Moderate Risk: F/U in 3-5 days
--- NOTE | 2019-03-14 12:37 | NUR ---
Dietitian Recommendations * Recommend continuing cardiac diet * 1/2 portions at meal times TID per pt preference LP, RD Please refer to Nutrition F/U for details.
--- NOTE | 2019-03-14 14:00 | NUR ---
IV. RIGHT FOREARM IV SITE INFILTRATED, AND D/CD, WARM COMPRESS APPLIED FOR ABOUT 5 TO 10 MINUTES, THEN PLACED RIGHT ARM ON A PILLOW. NEW IV INSERTED INTO LEFT HAND, USING 20 GAUGE CATHETER, GOOD BLOOD RETURN NOTED.
--- NOTE | 2019-03-14 15:50 | NUR ---
. DR MO CAME IN AND ASSESSED PT.
--- NOTE | 2019-03-14 19:10 | NUR ---
TO [facility]. TRANSFERRED CARE TO GABRIELLE GREENE. TRANSPORTED PT TO [facility] ROOM 117-A. ALL PERSONAL BELONGINGS TAKEN OUT OF ICU AND BROUGHT OUT WITH PATIENT.
--- NOTE | 2019-03-15 02:20 | NUR ---
Patient in bed. Room 117a. No acute distress noted. No complaint of pain. RT place patient on the BIPAP tolerating the BIPAP well. Will continue to monitor.
[2019-03-15] MEDS: IPRATROPIUM/ALBUTEROL SULFATE 3 ML AMPUL.NEB (DUONEB) INH SCH ×6 (03:46→23:26)
--- NOTE | 2019-03-15 06:15 | NUR ---
Current assessment unchanged.
[2019-03-15 08:00] VITALS: BP_SYST 145
[2019-03-15 08:09] LABS: BASOPHILS # (AUTO) 0.1 K/uL (0.0-0.2); EOSINOPHILS # (AUTO) 0.3 K/uL (0.0-0.4); EOSINOPHILS % (AUTO) 4.4 % (0.0-4.0); HEMATOCRIT 29.1 % (36-54); HEMOGLOBIN 9.5 g/dL (14.0-18.0); LYMPHOCYTES # (AUTO) 0.7 K/uL (1.0-5.5); LYMPHOCYTES % (AUTO) 10.7 % (20.5-51.5); MEAN CORPUSCULAR HEMOGLOBIN 31 pg (27-31); MEAN CORPUSCULAR HGB CONC 33 % (32-36); MEAN CORPUSCULAR VOLUME 95 fL (79.0-98.0); MONOCYTES # (AUTO) 0.6 K/uL (0.0-1.0); NEUTROPHILS # (AUTO) 4.5 K/uL (1.8-7.7); NEUTROPHILS % (AUTO) 73.9 % (40.0-70.0); PLATELET COUNT (AUTO) 246 K/uL (130-430); RED BLOOD CELL COUNT(AUTO) 3.07 MIL/uL (4.2-6.2); RED CELL DISTRIBUTION WIDTH 16.2 % (9.0-15.0); WHITE BLOOD COUNT (AUTO) 6.1 K/uL (4.8-10.8)
[2019-03-15 08:33] LABS: ALBUMIN 4.4 g/dL (3.4-4.8); C-REACTIVE PROTEIN QUANT 0.3 mg/dL (0-0.5); CALCIUM 9.5 mg/dL (8.4-11.0); CREATININE 1.17 mg/dL (0.55-1.30); POTASSIUM 3.6 mmol/L (3.5-5.1); TOTAL BILIRUBIN 0.2 mg/dL (0.0-1.0)
[2019-03-15 08:39] LABS: FREE T4 (FREE THYROXINE) 0.3 ng/dl (0.8-1.5)
[2019-03-15 08:57] LABS: ERYTHROCYTE SEDIMENTATION RATE 44 MM/HR (0-15)
[2019-03-15] MEDS: FUROSEMIDE 20 MG/2 ML VIAL IVP SCH (09:22)
[2019-03-15] MEDS: LEVOTHYROXINE SODIUM 0.1 MG VIAL IVP SCH (09:24)
[2019-03-15] MEDS: ENOXAPARIN SODIUM 40 MG/0.4 ML SYRINGE SUBCUT SCH ×2 (09:26→21:10)
[2019-03-15] MEDS: acetaZOLAMIDE 250 MG TABLET (DIAMOX) PO SCH ×2 (09:27→21:10)
[2019-03-15 12:00] VITALS: BP_SYST 156
[2019-03-15] MEDS ORDERED: VITS A AND D/WHITE PET/LANOLIN 113.4 GM TUBE TP ONE (14:30)
[2019-03-15 20:00] VITALS: BP_SYST 122
[2019-03-15] MEDS: VITS A AND D/WHITE PET/LANOLIN 113.4 GM TUBE TP SCH (21:16)
--- NOTE | 2019-03-15 22:23 | NUR ---
PATIENT IN BED. NO ACUTE DISTRESS NOTED. NO COMPLAINT OF PAIN WILL CONTINUE TO MONITOR.
[2019-03-16 02:36] VITALS: BP_SYST 127
--- NOTE | 2019-03-16 03:00 | NUR ---
PT REMOVED BIPAP STATED HE CAN'T TOLERATE IT. Addendum: 03/16/19 at 0314 by Ashlee Pinzon RT Amended: Links added.
[2019-03-16] MEDS: IPRATROPIUM/ALBUTEROL SULFATE 3 ML AMPUL.NEB (DUONEB) INH SCH ×6 (03:15→23:27)
--- NOTE | 2019-03-16 06:12 | NUR ---
NO CHANGE IN PATIENT'S CURRENT ASSESSMENT.
[2019-03-16 06:28] LABS: BASOPHILS # (AUTO) 0.1 K/uL (0.0-0.2); BASOPHILS % (AUTO) 1.3 % (0.0-2.0); EOSINOPHILS # (AUTO) 0.3 K/uL (0.0-0.4); EOSINOPHILS % (AUTO) 4.2 % (0.0-4.0); HEMATOCRIT 27.4 % (36-54); HEMOGLOBIN 9.1 g/dL (14.0-18.0); LYMPHOCYTES # (AUTO) 0.7 K/uL (1.0-5.5); LYMPHOCYTES % (AUTO) 10.8 % (20.5-51.5); MEAN CORPUSCULAR HEMOGLOBIN 31 pg (27-31); MEAN CORPUSCULAR HGB CONC 33 % (32-36); MEAN CORPUSCULAR VOLUME 95 fL (79.0-98.0); MONOCYTES # (AUTO) 0.7 K/uL (0.0-1.0); NEUTROPHILS % (AUTO) 73.7 % (40.0-70.0); PLATELET COUNT (AUTO) 244 K/uL (130-430); RED CELL DISTRIBUTION WIDTH 16.3 % (9.0-15.0); WHITE BLOOD COUNT (AUTO) 6.7 K/uL (4.8-10.8)
[2019-03-16 06:32] LABS: ALANINE AMINOTRANSFERASE 38 U/L (12-78); ALBUMIN 4.5 g/dL (3.4-4.8); ASPARTATE AMINOTRANSFERASE 47 U/L (10-37); C-REACTIVE PROTEIN QUANT 1.5 mg/dL (0-0.5); CALCIUM 9.6 mg/dL (8.4-11.0); CHLORIDE 94 mmol/L (98-107); CREATININE 1.24 mg/dL (0.55-1.30); GLUCOSE 124 mg/dL (70-99); POTASSIUM 3.4 mmol/L (3.5-5.1); SODIUM SERUM 132 mmol/L (136-145); TOTAL BILIRUBIN 0.3 mg/dL (0.0-1.0); UREA NITROGEN, BLOOD 8 mg/dL (8-21)
[2019-03-16 06:46] LABS: ANION GAP < 3 (5-15); GFR AFRICAN AMERICAN 78 mL/min (>90)
--- NOTE | 2019-03-16 07:50 | NUR ---
AM NOTES RECEIVED PT IN BED. A/CX4. DENIES ANY PAIN OR SOB. ON2 LNC SATURATION 94% NO S/S OF RES DISTRESS NOTED. VITALS STABLE. SAFETY AND FALL PRECAUTIONS MAINTAINED. IV LINE CAME OUT. CLEAN DRESSING APPLIED. NO BLEEDING NOTED. KEPT COMFORTABLE. WILL CONTINUE TO MONITOR
[2019-03-16 08:22] LABS: ERYTHROCYTE SEDIMENTATION RATE 53 MM/HR (0-15)
[2019-03-16 08:32] VITALS: BP_SYST 143
--- NOTE | 2019-03-16 08:43 | NUR ---
KEENAN MCGOWAN PAGED DR FELDER TO REPORT ABG RESULTS
[2019-03-16] MEDS: acetaZOLAMIDE 250 MG TABLET (DIAMOX) PO SCH ×2 (09:33→20:25)
[2019-03-16] MEDS: THEOPHYLLINE ANHYDROUS 300 MG TAB.SR.12H PO SCH (09:33)
[2019-03-16] MEDS: ENOXAPARIN SODIUM 40 MG/0.4 ML SYRINGE SUBCUT SCH ×2 (09:35→20:31)
[2019-03-16] MEDS ORDERED: POTASSIUM CHLORIDE 20 MEQ TAB.PRT.SR PO ONE (10:00)
[2019-03-16] MEDS: VITS A AND D/WHITE PET/LANOLIN 113.4 GM TUBE TP SCH ×2 (11:24→20:26)
[2019-03-16] MEDS: LEVOTHYROXINE SODIUM 0.1 MG VIAL IVP SCH (11:24)
--- NOTE | 2019-03-16 11:25 | NUR ---
Routine Patient ambulated in hallway with PT and back to bed. Scheduled medications given per order. Patient denies any pain at this time. Patient stable at this time.
[2019-03-16 12:27] VITALS: BP_SYST 134
[2019-03-16 16:25] VITALS: BP_SYST 138
[2019-03-16 17:20] VITALS: BP_SYST 134
--- NOTE | 2019-03-16 19:30 | NUR ---
INITIAL NOTES PATIENT IS STABLE AND LAYING IN BED. PLAN OF CARE WAS DISCUSSED WITH PATIENT AT THIS TIME. NO S/S OF RESPIRATORY FAILURE NOTED. FALL, SAFETY, ASPIRATION, AND RESPIRATION PRECAUTIONS WILL IN BE IN PLACE THROUGHOUT THE SHIFT. PATIENT SUCCESSFULLY DEMONSTRATES USAGE OF CALL LIGHT AT THIS TIME. BED IS LOCKED, ALARM, AND AT THE LOWEST POSITION. WILL CONTINUE TO MONITOR THROUGHOUT THE SHIFT.
[2019-03-16 19:32] VITALS: BP_SYST 140
--- NOTE | 2019-03-16 21:30 | NUR ---
ROUNDING PATIENT IS LAYING IN BED AND STABLE. PATIENT IS ON HIS PHONE. NO S/S OF RESPIRATORY DISTRESS NOTED. CALL LIGHT IN REACH. BED IS LOCKED, ALARMED, AND AT THE LOWEST POSITION. WILL CONTINUE TO MONITOR.
--- NOTE | 2019-03-16 23:25 | NUR ---
ROUNDING/ON BIPAP PATIENT IS LAYING IN BED AND STABLE. NO S/S OF RESPIRATORY DISTRESS NOTED. PATIENT IS ON BIPAP AT SETTINGS OF FI02 OF 28%, TV OF 550, RATE OF 20, AND EPAP OF 5. BED IS LOCKED, ALARMED, AND AT THE LOWEST POSITION. WILL CONTINUE TO MONITOR.
[2019-03-17 00:10] VITALS: BP_SYST 158
--- NOTE | 2019-03-17 01:23 | NUR ---
ROUNDING PATIENT IS SLEEPING IN BED AND STABLE. NO S/S OF RESPIRATORY DISTRESS NOTED. CALL LIGHT IN REACH. BED IS LOCKED, ALARMED, AND AT THE LOWEST POSITION. WILL CONTINUE TO MONITOR.
[2019-03-17] MEDS: IPRATROPIUM/ALBUTEROL SULFATE 3 ML AMPUL.NEB (DUONEB) INH SCH ×6 (03:09→23:12)
--- NOTE | 2019-03-17 03:30 | NUR ---
ROUNDING PATIENT IS OFF THE BIPAP AND BACK ON 2L NC. PATIENT IS STABLE. NO S/S OF RESPIRATORY DISTRESS NOTED. PATIENT USED URINAL AT THIS TIME. PATIENT TOLERATED WELL. PATIENT REPOSITION FOR COMFORT. CALL LIGHT IN REACH. BED IS LOCKED, ALARMED, AND AT THE LOWEST POSITION. WILL CONTINUE TO MONITOR.
--- NOTE | 2019-03-17 04:02 | NUR ---
DR. IVORY DODSON IS BY BEDSIDE AT THIS TIME.
--- NOTE | 2019-03-17 04:55 | NUR ---
ROUNDING SITTING UP IN BED AND DRAWING. PATIENT IS STABLE. NO S/S OF RESPIRATORY DISTRESS NOTED. CALL LIGHT IN REACH. BED IS LOCKED, ALARMED, AND AT THE LOWEST POSITION. WILL CONTINUE TO MONITOR.
[2019-03-17] MEDS: LEVOTHYROXINE SODIUM 0.1 MG TABLET PO SCH (06:06)
[2019-03-17] MEDS: LEVOTHYROXINE SODIUM 0.075 MG TABLET PO SCH (06:06)
--- NOTE | 2019-03-17 06:10 | NUR ---
CLOSING NOTES PATIENT IS LAYING IN BED (AT 90 DEGREES) AND STABLE. NO S/S OF RESPIRATORY DISTRESS NOTED. CALL LIGHT IN REACH. BED IS LOCKED, ALARMED, AND AT THE LOWEST POSITION. FALL, SAFETY, ASPIRATION, AND RESPIRATORY PRECAUTIONS HAS BEEN PLACE THROUGHOUT THE SHIFT. WILL CONTINUE TO MONITOR UNTIL REPORT IS GIVEN TO AM NURSE BY BEDSIDE.
[2019-03-17] MEDS ORDERED: LEVOTHYROXINE SODIUM 0.1 MG TABLET PO SCH (07:00)
[2019-03-17 07:45] LABS: BASOPHILS # (AUTO) 0.1 K/uL (0.0-0.2); BASOPHILS % (AUTO) 1.4 % (0.0-2.0); EOSINOPHILS # (AUTO) 0.3 K/uL (0.0-0.4); EOSINOPHILS % (AUTO) 4.4 % (0.0-4.0); HEMATOCRIT 28.6 % (36-54); HEMOGLOBIN 9.4 g/dL (14.0-18.0); LYMPHOCYTES # (AUTO) 0.8 K/uL (1.0-5.5); LYMPHOCYTES % (AUTO) 12.8 % (20.5-51.5); MEAN CORPUSCULAR HEMOGLOBIN 31 pg (27-31); MEAN CORPUSCULAR HGB CONC 33 % (32-36); MEAN CORPUSCULAR VOLUME 96 fL (79.0-98.0); MONOCYTES # (AUTO) 0.6 K/uL (0.0-1.0); MONOCYTES % (AUTO) 10.6 % (1.7-9.3); NEUTROPHILS # (AUTO) 4.3 K/uL (1.8-7.7); NEUTROPHILS % (AUTO) 70.8 % (40.0-70.0); PLATELET COUNT (AUTO) 251 K/uL (130-430); RED BLOOD CELL COUNT(AUTO) 2.99 MIL/uL (4.2-6.2); RED CELL DISTRIBUTION WIDTH 16.6 % (9.0-15.0); WHITE BLOOD COUNT (AUTO) 6.1 K/uL (4.8-10.8)
[2019-03-17 07:51] LABS: C-REACTIVE PROTEIN QUANT 6.3 mg/dL (0-0.5); CALCIUM 9.7 mg/dL (8.4-11.0); CREATININE 1.11 mg/dL (0.55-1.30); PHOSPHORUS 4.1 mg/dL (2.7-4.5); POTASSIUM 3.6 mmol/L (3.5-5.1)
[2019-03-17 08:25] VITALS: BP_SYST 135
[2019-03-17] MEDS: acetaZOLAMIDE 250 MG TABLET (DIAMOX) PO SCH ×2 (09:18→21:49)
[2019-03-17] MEDS: THEOPHYLLINE ANHYDROUS 300 MG TAB.SR.12H PO SCH (09:18)
[2019-03-17] MEDS: VITS A AND D/WHITE PET/LANOLIN 113.4 GM TUBE TP SCH ×2 (09:19→23:37)
[2019-03-17] MEDS: ENOXAPARIN SODIUM 40 MG/0.4 ML SYRINGE SUBCUT SCH ×2 (09:19→21:51)
--- NOTE | 2019-03-17 09:23 | NUR ---
Routine Scheduled medications given per order. Patient sitting on side of bed with PT at bedside. Denies any pain at this time. Patient stable.
[2019-03-17 11:37] LABS: ERYTHROCYTE SEDIMENTATION RATE 80 MM/HR (0-15)
[2019-03-17 12:25] VITALS: BP_SYST 135
--- NOTE | 2019-03-17 15:00 | NUR ---
Patient received a/ox4, denies pain, denies shortness of breath, assisted patient with EDITOR NEWS to the restroom, he tolerated well, assisted him back to bed, instructed the patient electrical power station technician light use, he verbalized understanding, call light placed within reach, fall and aspiration precautions in place.
[2019-03-17 16:17] VITALS: BP_SYST 122
--- NOTE | 2019-03-17 17:41 | NUR ---
Nutrition F/U RD reviewed pt's current EMR record including diet Hx, physician notes, nursing notes, pertinent labs/meds/procedures, care trends, and care activity. Admission Dx: Respiratory failure PMH: acute respiratory failure, hypoxia, CKD, hyperglycemia, cor pulmonale, hypothyroidism, bradycardia, severe obesity, anasarca, Pickwickian syndrome per physician notes Current Diet Order/Nutrition Support: Cardiac x6 days Subjective Info: Pt was seen resting in bed at time of RD visit. Pt reported that he is trying to "cut back" on his portion sizes while in the hospital, and has not had much of an appetite d/t meds. Per EMR, PO intake records indicate 67% average x8 meals. Pt food preferences noted in [employer]. Pt reported BM x1 today, no difficulties. Estimated Energy Expenditure (kcals/day) 3996-4550 kcal/day (MSJ x 1-1.2 for critical illness and obesity) Estimated Protein Required (g/day) 50-74 gm/day (0.8-1.2 gm/kg IBW for CKD, predialysis/critical illness) Estimated Fluid Required (l/day) Per MD (CKD) Problem/Etiology/Signs/Symptoms (modified) Morbid Obesity r/t lifestyle factors AEB BMI 56.6 kg/m2, 250% of IBW, and sedentary behavior. *ongoing Expected Outcomes/Goals Monitor appetite and PO intake w/ goal of pt meeting at least 75% of estimated nutritional needs, labs trending WNL, normal GI function, skin integrity/wt maintenance. Dietitian Recommendations * Recommend continuing cardiac diet * 1/2 portions at meal times TID per pt preference Follow Up Moderate Risk: F/U in 3-5 days Addendum: 03/17/19 at [address] Pt was not interested in nutrition education when offered today.
--- NOTE | 2019-03-17 19:10 | NUR ---
Pt received in stable condition for start of shift. Pt alert, oriented x 4.
[2019-03-18 00:27] VITALS: BP_SYST 135
[2019-03-18] MEDS: IPRATROPIUM/ALBUTEROL SULFATE 3 ML AMPUL.NEB (DUONEB) INH SCH ×5 (03:43→19:49)
[2019-03-18] MEDS: LEVOTHYROXINE SODIUM 0.075 MG TABLET PO SCH (07:29)
[2019-03-18] MEDS: LEVOTHYROXINE SODIUM 0.1 MG TABLET PO SCH (07:29)
[2019-03-18 07:41] LABS: HEMATOCRIT 27.5 % (36-54); MEAN CORPUSCULAR HEMOGLOBIN 32 pg (27-31); MEAN CORPUSCULAR HGB CONC 33 % (32-36); MEAN CORPUSCULAR VOLUME 95 fL (79.0-98.0); PLATELET COUNT (AUTO) 275 K/uL (130-430); RED BLOOD CELL COUNT(AUTO) 2.89 MIL/uL (4.2-6.2); RED CELL DISTRIBUTION WIDTH 16.5 % (9.0-15.0); WHITE BLOOD COUNT (AUTO) 7.2 K/uL (4.8-10.8)
[2019-03-18 07:45] VITALS: BP_SYST 129
--- NOTE | 2019-03-18 07:45 | NUR ---
Opening note patient resting in bed, a/ox4, denies pain, denies shortness of breath, IV line is patent, no s/s of infiltration, patient is on Room Air at this time, assessment complete, educated aerotriangulation specialist light system and plan of care, he verbalized understanding, bed in lowest position, two side rails up, call light placed within reach, fall and aspiration precautions in place.
[2019-03-18 07:52] LABS: HEMOGLOBIN 9.1 g/dL (14.0-18.0)
[2019-03-18 07:59] LABS: CALCIUM 9.8 mg/dL (8.4-11.0); CREATININE 1.07 mg/dL (0.55-1.30)
[2019-03-18] MEDS: acetaZOLAMIDE 250 MG TABLET (DIAMOX) PO SCH ×2 (09:06→21:37)
--- NOTE | 2019-03-18 09:06 | NUR ---
Medication patient resting in bed, awake, denies pain, educated on scheduled medications uses and potential side effects, he verbalized understanding and tolerated well, no other needs at this time, continuing to monitor, bed in lowest position, two side rails up, call light placed within reach, fall and aspiration precautions in place.
[2019-03-18] MEDS: VITS A AND D/WHITE PET/LANOLIN 113.4 GM TUBE TP SCH ×2 (09:07→21:37)
[2019-03-18] MEDS: THEOPHYLLINE ANHYDROUS 300 MG TAB.SR.12H PO SCH (09:07)
[2019-03-18] MEDS: ENOXAPARIN SODIUM 40 MG/0.4 ML SYRINGE SUBCUT SCH ×2 (09:09→21:38)
--- NOTE | 2019-03-18 11:19 | NUR ---
Dr. Lima rounds informed her of ABG results on room air, will follow up with any new orders.
[2019-03-18 11:35] VITALS: BP_SYST 166
[2019-03-18 12:09] LABS: ATYPICAL LYMPHOCYTES % 0 % (0-0); BAND % (MANUAL) 0 % (0-6); BASOPHILS % (MANUAL) 0 % (0-2); EOSINOPHILS % (MANUAL) 5 % (0-7); LYMPHOCYTES % (MANUAL) 15 % (20-46); MONOCYTES % (MANUAL) 10 % (0-11)
--- NOTE | 2019-03-18 13:30 | NUR ---
RN rounds patient resting in bed, awake, denies pain, denies shortness of breath, on 2L nasal cannula, no needs at this time, bed in lowest position, two side rails up, call light within reach, fall and aspiration precautions in place.
--- NOTE | 2019-03-18 15:13 | NUR ---
RN rounds patient resting in bed, received breathing treatment, patient denies pain, denies shortness of breath, adjusted monitor car operator, patient has no other needs at this time, bed in lowest two side rails up, call light within reach, fall and aspiration precautions in place.
[2019-03-18 15:50] VITALS: BP_SYST 154
--- NOTE | 2019-03-18 17:36 | NUR ---
RN rounds patient resting in bed, awake, denies pain, denies shortness of breath, no needs at this time, continuing to monitor, bed in lowest position, two side rails up, call light within patient reach, fall and aspiration precautions in place.
--- NOTE | 2019-03-18 18:36 | NUR ---
Closing note patient resting in bed, awake, denies pain, denies shortness of breath, all needs met, will endorse report to NOC shift nurse, bed in lowest position, two side rails up, call light within reach, fall and aspiration precautions in place.
--- NOTE | 2019-03-18 19:30 | NUR ---
Opening notes Received report. Patient is resting in bed. No signs of distress noted. Breathing even and unlabored. IV patent and intact, no signs of infiltration noted. No needs at this time. Call light with the patient. Safety precautions in place.
--- NOTE | 2019-03-18 21:25 | NUR ---
Medications given. Educated the action and side effects of medications. Patient verbalized understanding and tolerated well. No other needs. Patient drawing. Call light with the patient. Safety precautions in place.
[2019-03-18 21:39] VITALS: BP_SYST 139
--- NOTE | 2019-03-18 23:45 | NUR ---
Sleeping Patient sleeping. No signs of distress noted. Breathing even and unlabored on 2 L NC. No needs. Call light with the patient. Safety precautions in place.
[2019-03-19 01:02] VITALS: BP_SYST 125
--- NOTE | 2019-03-19 02:00 | NUR ---
Sleeping No signs of distress noted. Breathing even and unlabored. Call light with the patient. Safety precautions in place.
--- NOTE | 2019-03-19 04:37 | NUR ---
Resting Patient resting in bed. repositioned self. receiving breathing treatment. No signs of distress noted. Breathing even and unlabored. Provided apple juice, no other needs. Call light with the patient. Safety precautions in place.
[2019-03-19] MEDS: LEVOTHYROXINE SODIUM 0.1 MG TABLET PO SCH (06:05)
[2019-03-19] MEDS: LEVOTHYROXINE SODIUM 0.075 MG TABLET PO SCH (06:05)
[2019-03-19 06:20] LABS: BASOPHILS # (AUTO) 0.1 K/uL (0.0-0.2); EOSINOPHILS # (AUTO) 0.4 K/uL (0.0-0.4); MONOCYTES # (AUTO) 0.6 K/uL (0.0-1.0); NEUTROPHILS # (AUTO) 4.4 K/uL (1.8-7.7); WHITE BLOOD COUNT (AUTO) 6.2 K/uL (4.8-10.8)
[2019-03-19 06:22] LABS: CALCIUM 9.5 mg/dL (8.4-11.0); CREATININE 1.06 mg/dL (0.55-1.30); POTASSIUM 3.6 mmol/L (3.5-5.1)
[2019-03-19 06:29] LABS: MEAN CORPUSCULAR HEMOGLOBIN 32 pg (27-31); MEAN CORPUSCULAR HGB CONC 33 % (32-36)
[2019-03-19 06:48] LABS: BASOPHILS % (AUTO) 1.4 % (0.0-2.0); EOSINOPHILS % (AUTO) 6.1 % (0.0-4.0); HEMATOCRIT 27.7 % (36-54); HEMOGLOBIN 9.1 g/dL (14.0-18.0); LYMPHOCYTES # (AUTO) 0.8 K/uL (1.0-5.5); LYMPHOCYTES % (AUTO) 13.4 % (20.5-51.5); MEAN CORPUSCULAR VOLUME 96 fL (79.0-98.0); MONOCYTES % (AUTO) 8.9 % (1.7-9.3); NEUTROPHILS % (AUTO) 70.2 % (40.0-70.0); PLATELET COUNT (AUTO) 279 K/uL (130-430); RED CELL DISTRIBUTION WIDTH 16.7 % (9.0-15.0)
--- NOTE | 2019-03-19 06:50 | NUR ---
Closing notes Patient resting comfortably in bed. No signs of distress noted. Breathing even and unlabored on 2 L NC. IV patent and intact, no signs of infiltration noted. All needs met throughout the shift. Call light with the patient. Safety precautions in place. will endorse care to day shift RN.
--- NOTE | 2019-03-19 07:33 | NUR ---
OPENING NOTE Patient resting in the bed with eyes closed. No acute distress. On O2 2L/min via NC. Skin warm and dry to touch. SL intact to left hand, no redness, no swelling. Safety measure maintained. Call light within reached. Bed locked in low position, side rails up. Will continue to monitor.
[2019-03-19 07:45] VITALS: BP_SYST 133
[2019-03-19 07:50] VITALS: BP_SYST 133
[2019-03-19] MEDS: IPRATROPIUM/ALBUTEROL SULFATE 3 ML AMPUL.NEB (DUONEB) INH SCH ×5 (07:50→23:44)
[2019-03-19] MEDS: acetaZOLAMIDE 250 MG TABLET (DIAMOX) PO SCH ×2 (08:52→20:34)
[2019-03-19] MEDS: ENOXAPARIN SODIUM 40 MG/0.4 ML SYRINGE SUBCUT SCH ×2 (08:53→20:35)
[2019-03-19] MEDS: VITS A AND D/WHITE PET/LANOLIN 113.4 GM TUBE TP SCH ×2 (08:54→20:34)
--- NOTE | 2019-03-19 09:13 | NUR ---
AM SCHEDULE MED GIVEN, TOLERATED WELL.
--- NOTE | 2019-03-19 10:58 | NUR ---
BATHROOM Ambulated patient to bathroom with assistance and using walker. Assisted back to bed. No acute distress. Applied O2 via NC. Safety measure maintained. Bed locked in low position, side rails up. Call light within reached. Continue to monitor.
[2019-03-19 11:37] VITALS: BP_SYST 154
--- NOTE | 2019-03-19 12:30 | NUR ---
ROUND Patient resting in the bed. No acute distress. Continue on O2 2L/min via NC. Safety measure maintained. Call light within reached. Bed locked in low position, side rails up. Continue to monitor.
--- NOTE | 2019-03-19 14:47 | NUR ---
BATHROOM Ambulated patient to bathroom by using walker with assistance. Assisted back to bed. No acute distress. Safety measure maintained. Bed locked in low position, side rails up. Call light within reached. Continue to monitor.
--- NOTE | 2019-03-19 15:05 | NUR ---
SEEN AND EXAMINED BY WEN KONG.
[2019-03-19 16:00] VITALS: BP_SYST 146
--- NOTE | 2019-03-19 17:15 | NUR ---
ROUND Patient resting in the bed. No acute distress. Continue on O2 via NC. Safety measure maintained. Call light within reached. Bed locked in low position, side rails up. Continue to monitor.
--- NOTE | 2019-03-19 18:28 | NUR ---
DR. MO, CODY Mo seen and examined the patient. Informed to Dr. Elizalde patient needs oxygen when discharge home. Per Dr. Elizalde will give order.
--- NOTE | 2019-03-19 18:51 | NUR ---
CLOSING NOTE Patient resting in the bed. No acute distress. On O2 2L/min via NC. Skin warm and dry to touch. SL intact to left hand, no redness, no swelling, patent. All needs met. Safety measure maintained. Call light within reached. Bed locked in low position, side rails up. Refused bed alarm, risk and benefit explained, verbally understanding. Will endorse to night nurse.
[2019-03-19] MEDS ORDERED: SYN75 PO (18:56)
[2019-03-19] MEDS ORDERED: DIA250 PO (18:56)
[2019-03-19] MEDS ORDERED: LEVO100T PO (18:56)
--- NOTE | 2019-03-19 19:50 | NUR ---
OPENING NOTES Pt and endorsement received from day shift nurse. Pt is AAOx4, lying in bed while eating dinner. Pt on O2 inhalation at 2L via nasal cannula. Pt on saline lock on left hand G22. No complains of pain at this time. No signs of acute distress or SOB noted. Encouraged to use call light when needed. Safety precautions in place with 3 side rails up, wheels locked, bed alarm on and in lowest level. Call light with pt. Will continue to monitor.
[2019-03-19 20:31] VITALS: BP_SYST 149
--- NOTE | 2019-03-19 20:35 | NUR ---
ROUNDS All due meds given and pt tolerated well. No complains of pain and no signs of acute distress noted. Safety precautions in place and call light with pt. Will continue to monitor.
--- NOTE | 2019-03-19 23:45 | NUR ---
ROUNDS Pt is resting in bed with both eyes closed, with visible chest rise and fall with non-labored breathing noted. No signs of acute distress or SOB noted. Safety precautions in place and call light with pt. Will continue to monitor.
[2019-03-20 01:26] VITALS: BP_SYST 143
--- NOTE | 2019-03-20 03:00 | NUR ---
ROUNDS Pt is resting in bed with both eyes closed, with visible chest rise and fall with non-labored breathing noted. Pt is easily arousable. No complains of pain and no signs of acute distress. No needs at this time. Safety precautions in place and call light with pt. Will continue to monitor.
[2019-03-20] MEDS: IPRATROPIUM/ALBUTEROL SULFATE 3 ML AMPUL.NEB (DUONEB) INH SCH ×6 (04:10→23:00)
[2019-03-20] MEDS: LEVOTHYROXINE SODIUM 0.1 MG TABLET PO SCH (06:07)
[2019-03-20] MEDS: LEVOTHYROXINE SODIUM 0.075 MG TABLET PO SCH (06:07)
--- NOTE | 2019-03-20 06:40 | NUR ---
CLOSING NOTES Pt is AAOx4, lying in bed. No complains of pain at this time. No signs of acute distress or SOB noted. All needs attended throughout the shift. Safety precautions maintained with 3 side rails up, wheels locked, and bed in lowest level. Call light with pt. Will endorse to day shift nurse.
[2019-03-20 07:54] LABS: CALCIUM 9.6 mg/dL (8.4-11.0); CREATININE 0.95 mg/dL (0.55-1.30); POTASSIUM 3.6 mmol/L (3.5-5.1)
[2019-03-20 08:00] VITALS: BP_SYST 137
--- NOTE | 2019-03-20 08:00 | NUR ---
Initial notes- In bed, awake. denies any chest pain or shortness of breath, 02 off at this time. 02 sat at 88%, enc pt to take a deep breath and put oxygen back. No acute distress noted. wants to go back to sleep. Update plan of care. Call light in reach. will monitor.
[2019-03-20 08:17] LABS: BASOPHILS # (AUTO) 0.1 K/uL (0.0-0.2); EOSINOPHILS # (AUTO) 0.4 K/uL (0.0-0.4); EOSINOPHILS % (AUTO) 6.4 % (0.0-4.0); HEMOGLOBIN 9.1 g/dL (14.0-18.0); LYMPHOCYTES # (AUTO) 0.9 K/uL (1.0-5.5); LYMPHOCYTES % (AUTO) 14.8 % (20.5-51.5); MEAN CORPUSCULAR HEMOGLOBIN 31 pg (27-31); MEAN CORPUSCULAR HGB CONC 33 % (32-36); MEAN CORPUSCULAR VOLUME 96 fL (79.0-98.0); MONOCYTES # (AUTO) 0.6 K/uL (0.0-1.0); MONOCYTES % (AUTO) 9.3 % (1.7-9.3); NEUTROPHILS # (AUTO) 4.1 K/uL (1.8-7.7); NEUTROPHILS % (AUTO) 67.5 % (40.0-70.0); PLATELET COUNT (AUTO) 289 K/uL (130-430); RED BLOOD CELL COUNT(AUTO) 2.93 MIL/uL (4.2-6.2); RED CELL DISTRIBUTION WIDTH 16.7 % (9.0-15.0); WHITE BLOOD COUNT (AUTO) 6.1 K/uL (4.8-10.8)
[2019-03-20] MEDS: acetaZOLAMIDE 250 MG TABLET (DIAMOX) PO SCH ×2 (09:29→20:28)
[2019-03-20] MEDS: VITS A AND D/WHITE PET/LANOLIN 113.4 GM TUBE TP SCH ×2 (09:30→20:30)
[2019-03-20] MEDS: ENOXAPARIN SODIUM 40 MG/0.4 ML SYRINGE SUBCUT SCH ×2 (09:33→20:30)
--- NOTE | 2019-03-20 10:19 | NUR ---
O2 -Pt walk in the hallway with FWW with therapy without oxygen, O2 sat after walking is ranging from 82-87% in room air.
--- NOTE | 2019-03-20 12:40 | NUR ---
Notes- In bed, eating lunch. denies any chest pain, no distress noted.
[2019-03-20 12:52] VITALS: BP_SYST 155
--- NOTE | 2019-03-20 14:53 | NUR ---
PHYSICAL THERAPY CO-SIGN The Physical Therapy Progress Notes documented by Speech Therapist have been reviewed. Reviewed/Co-Signed by: [facility] SorensenPT Documentation Done by: EDUARDO WALL PTA Addendum: 03/20/19 at 1458 by [facility] Sorensen PT Amended: Links added.
--- NOTE | 2019-03-20 14:55 | NUR ---
PHYSICAL THERAPY CO-SIGN The Physical Therapy Progress Notes documented by Ammonia Nitrate Operator have been reviewed. Reviewed/Co-Signed by: [facility] Sorensen PT Documentation Done by: EDUARDO WALL PTA Addendum: 03/20/19 at 1458 by [facility] Sorensen PT Amended: Links added.
--- NOTE | 2019-03-20 14:56 | NUR ---
PHYSICAL THERAPY CO-SIGN The Physical Therapy Progress Notes documented by Garnetter have been reviewed. Reviewed/Co-Signed by: Clayotn Sorensen PT Documentation Done by: EDUARDO WALL PTA Addendum: 03/20/19 at 1458 by [facility] Sorensen PT Amended: Links added.
--- NOTE | 2019-03-20 14:57 | NUR ---
PHYSICAL THERAPY CO-SIGN The Physical Therapy Progress Notes documented by Carriage Feeder have been reviewed. Reviewed/Co-Signed by: [facility] Sorensen PT Documentation Done by: EDUARDO AWLL PTA Addendum: 03/20/19 at 1458 by [facility] Sorensen PT Amended: Links added.
--- NOTE | 2019-03-20 15:02 | NUR ---
WOUND EVALUATION: Wound Consult received from Dr. Moshe Lucia. Thank you Dr. Lucia for the consult. Patient received in a [place] Bed with a mattress, awake, alert, and oriented. Patient is unable to turn independently. Gilbert Score is a 20. Past Medical History: Severe obesity. Recent Labs: WBC 6.1, RBC 2.93, hemoglobin 9.1, hematocrit 28.0, ESR 80, BUN 9, creatinine 0.95, GFR 87, glucose 118, albumin 4.5. Microbiology: MRSA screen results negative. Intrinsic factors that delay wound healing: Obesity. Extrinsic factors that delay wound healing: Decreased mobility. Wound Assessment: 1. Left distal weems: Chronic wound of unknown etiology, present on admission. Wound bed has 95% dark yellow scab, 5% black scab. No odor, no drainage. Periwound intact. Dry, stable. Wound measures 1.5 cm x 2.3 cm. Recommend: No dressing needed. [place] site with Betadine daily. Continue to monitor site every shift. 2. Left great toe: Dry, scaly skin with fissures with dark coloration on top, present on admission. 3. Left heel: Dry, scaly skin with fissures with dark coloration on top, present on admission. 4. Right great toe: Dry, scaly skin with fissures with dark coloration on top, present on admission. 5. Right heel: Dry, scaly skin with fissures with dark coloration on top, present on admission. Recommend: Cleanse involved areas with mild soap and water. Pat dry. Apply Eucerin cream to involved areas. Perform site care twice a day. 6. Right distal weems: Chronic wound of unknown etiology, present on admission. Wound bed has 100% black scab. No odor, no drainage. Periwound intact. Dry, stable. Wound measures 0.7 cm x 0.8 cm. 7. Right lateral lower extremity, inferior and lateral to site 6: Chronic wound of unknown etiology, present on admission. Wound bed has 100% yellow scab. No odor, no drainage. Periwound intact. Dry, stable. Wound measures 2.5 cm x 2.7 cm. 8. Right lateral lower extremity, inferior to site 7: Chronic wound of unknown etiology, present on admission. Wound bed has dark discolored hard skin with a small black scab. No odor, no drainage. Periwound intact. Dry, stable. Wound measures 1.0 cm x 1.4 cm. 9. Right great toe: Chronic wound of unknown etiology, present on admission. Wound bed has 100% black scab. No odor, no drainage. Periwound intact. Dry, stable. 10. Left great toe: Chronic wound of unknown etiology, present on admission. Wound bed has 100% black scab. No odor, no drainage. Periwound intact. Dry, stable. Recommend: No dressings needed. [place] sites with Betadine daily. Continue to monitor sites every shift. Also recommend: Encourage and assist patient as needed with repositioning every 2 hours with pillow support and off-load pressure areas with pillows for pressure re-distribution. Offload, elevate and float bilateral heels with pillows. Perform skin care and monitor skin integrity Q shift. Use moisture barrier cream on buttocks and other moisture susceptible areas QID and as needed for soiling.
[2019-03-20] MEDS ORDERED: EMOLLIENT COMBINATION NO.73 78 GM CREAM..G. TP ONE (16:15)
--- NOTE | 2019-03-20 16:21 | NUR ---
nOTES- Resting in bed, denies any chest pain or discomfort. No distress noted.
[2019-03-20 16:48] VITALS: BP_SYST 162
--- NOTE | 2019-03-20 18:37 | NUR ---
Notes- in bed, eating dinner. No change in assessment. All needs meet. Will endorse
--- NOTE | 2019-03-20 19:35 | NUR ---
OPENING NOTES Pt and endorsement received from day shift nurse. Pt is AAOx4, lying in bed. Pt on saline lock on left hand G22. No complains of pain at this time. No signs of acute distress or SOB noted. Encouraged to use call light when needed. Safety precautions in place with 3 side rails up, wheels locked, bed alarm on and in lowest level. Call light with pt. Will continue to monitor.
[2019-03-20 20:26] VITALS: BP_SYST 152
[2019-03-20] MEDS: EMOLLIENT COMBINATION NO.73 78 GM CREAM..G. TP SCH (20:28)
--- NOTE | 2019-03-20 23:50 | NUR ---
ROUNDS Pt is AAOx4, lying in bed while listening to music. Encouraged pt to rest and sleep. No complains of pain and no signs of acute distress noted. Safety precautions in place and call light with pt. Will continue to monitor.
[2019-03-21 00:30] VITALS: BP_SYST 136
[2019-03-21] MEDS: IPRATROPIUM/ALBUTEROL SULFATE 3 ML AMPUL.NEB (DUONEB) INH SCH ×6 (03:00→23:17)
--- NOTE | 2019-03-21 03:28 | NUR ---
ROUNDS Pt is resting in bed with both eyes closed, with visible chest rise and fall with non-labored breathing noted. Pt is easily arousable. No signs of acute distress noted. No needs at this time. Safety precautions in place and call light with pt. Will continue to monitor.
[2019-03-21] MEDS: LEVOTHYROXINE SODIUM 0.1 MG TABLET PO SCH (06:20)
[2019-03-21] MEDS: LEVOTHYROXINE SODIUM 0.075 MG TABLET PO SCH (06:20)
[2019-03-21 07:50] LABS: BASOPHILS # (AUTO) 0.1 K/uL (0.0-0.2); BASOPHILS % (AUTO) 2.2 % (0.0-2.0); EOSINOPHILS # (AUTO) 0.4 K/uL (0.0-0.4); EOSINOPHILS % (AUTO) 7.3 % (0.0-4.0); HEMOGLOBIN 9.5 g/dL (14.0-18.0); LYMPHOCYTES % (AUTO) 16.5 % (20.5-51.5); MEAN CORPUSCULAR HEMOGLOBIN 31 pg (27-31); MEAN CORPUSCULAR HGB CONC 33 % (32-36); MEAN CORPUSCULAR VOLUME 95 fL (79.0-98.0); MONOCYTES # (AUTO) 0.5 K/uL (0.0-1.0); MONOCYTES % (AUTO) 7.9 % (1.7-9.3); NEUTROPHILS # (AUTO) 3.9 K/uL (1.8-7.7); NEUTROPHILS % (AUTO) 66.1 % (40.0-70.0); PLATELET COUNT (AUTO) 284 K/uL (130-430); RED BLOOD CELL COUNT(AUTO) 3.06 MIL/uL (4.2-6.2); RED CELL DISTRIBUTION WIDTH 16.2 % (9.0-15.0); WHITE BLOOD COUNT (AUTO) 5.8 K/uL (4.8-10.8)
--- NOTE | 2019-03-21 08:00 | NUR ---
RN INITIAL NOTES RECEIVED PATIENT IN BED ALERT AWAKE AND VERBALLY RESPONSIVE NO DISTRESS HOB ELEVATED , PATIENT ABLE TO VERBALIZED NEEDS , RESP EVEN AND UNLABORED , MEDS GIVEN , TOLERATED .
[2019-03-21 08:15] LABS: CALCIUM 9.9 mg/dL (8.4-11.0); CREATININE 0.95 mg/dL (0.55-1.30); POTASSIUM 3.4 mmol/L (3.5-5.1)
[2019-03-21 08:30] VITALS: BP_SYST 137
[2019-03-21] MEDS: acetaZOLAMIDE 250 MG TABLET (DIAMOX) PO SCH (08:32)
[2019-03-21] MEDS: ENOXAPARIN SODIUM 40 MG/0.4 ML SYRINGE SUBCUT SCH ×2 (08:34→20:15)
[2019-03-21] MEDS: EMOLLIENT COMBINATION NO.73 78 GM CREAM..G. TP SCH ×2 (08:35→20:21)
[2019-03-21] MEDS: VITS A AND D/WHITE PET/LANOLIN 113.4 GM TUBE TP SCH (09:00)
--- NOTE | 2019-03-21 11:06 | NUR ---
PHYSICAL THERAPIST PATIENT SEEN AND AMBULATES WITH PT , TOLERATED ABOUT 40 FEET WITH STEADY GAIT USING FWW, CLOSE GUARG ASSIST, NO COMPLAIN OF PAIN , SAT WENT DOWN TO 90% THEN AFTER A FEW MINUTES WENT BACK UP TO 95%. PATIENT NO DISTRESS AND WANTS TO SIT IN THE CHAIR
[2019-03-21] MEDS ORDERED: POTASSIUM CHLORIDE 20 MEQ TAB.PRT.SR PO ONE (11:15)
--- NOTE | 2019-03-21 12:30 | NUR ---
ROUNDS PATIENT SITTING IN THE CHAIR EATING, NO DISTRESS
[2019-03-21 12:34] VITALS: BP_SYST 159
--- NOTE | 2019-03-21 14:00 | NUR ---
ROUNDS PATIENT IN BED DRAWING NO DISTRESS Addendum: 03/21/19 at 1731 by Rowena Hilliard RN DR MO CAME AND DISCUSSED PATIENT ORDERS NOTED
[2019-03-21 16:13] VITALS: BP_SYST 132
--- NOTE | 2019-03-21 16:30 | NUR ---
DC Planning: late entry: spoke with pt, GABRIELLE Jones and dr. Lima: per PT/Jose , the pt was able to walk 40feet on RA sat 94 % but pt GABRIELLE Jones pt's sat 81% on 2 L and bedrest after PT. The pt was anxious to go home and aware that he needs oxygen and bipap set up. The pt stated he does not have money nor any one in the family can help. He does not want to go back to his father 's home with oxygen tanks. His father smoke all the time and it is very dangerous when has oxygen in same house. He said he can stay with his niece temporary but needed to talk to her first. At this time, the dcp is uncertain dt pt's insurance and he has no funds for the DME. Second, there is unsure where he will be staying either back to his father or his niece's home. The pt will need another PT ambulatory with O2 which per [facility] de[facility] may not be able to provide during weekend. The pt made aware that he can not go home with our oxygen and bipap set up. Per dr. Lima the pt may not be discharged without home o2 and bipap. also aware of the discharge barriers.
--- NOTE | 2019-03-21 17:27 | NUR ---
DR EMERITA MCGOWAN CALLED BACK AND ORDER TO LOWER OXYGEN TO 1.5 L/MIN
--- NOTE | 2019-03-21 17:31 | NUR ---
CHAD REPOSTED ABG TO DR EMERITA AVALOS
--- NOTE | 2019-03-21 19:10 | NUR ---
OPENING NOTES Receive report from morning shift Rowena ANTHONY. Patient AOx4. No signs of respiratory distress noted. Denies pain and discomfort at this time. IV site, patency noted. On 1.5L of oxygen via nasal cannula, attached and secured. Call light within reach, patient educated to use call light when assistance is needed, patient verbalized understanding. Bed alarm on. Safety precautions in place. Will continue to monitor patient.
[2019-03-21 20:00] VITALS: BP_SYST 132
--- NOTE | 2019-03-21 20:15 | NUR ---
MED PASS Due medication given at this time, patient tolerated well. No signs of respiratory distress noted. 02 at 1.5L via Nasal cannula, attached and secured. HOB raised. Safety precautions in place. Will continue to monitor patient.
--- NOTE | 2019-03-21 23:24 | NUR ---
RN ROUNDS Mid night vitals taken at this time. No signs of respiratory distress and discomfort noted. Denies pain and discomfort. HOB raised. Breathing even and unlabored. Safety precautions in place. Will continue to monitor
[2019-03-22] VITALS (8 sets, daily range): BP systolic 112–129
--- NOTE | 2019-03-22 01:33 | NUR ---
RN ROUNDS Patient asleep at this time. No signs of respiratory distress and discomfort noted. Breathing even and unlabored. HOB raised. 02 at 1.5 via nasal cannula, attached and secured. Safety precautions in place. Will continue to monitor
--- NOTE | 2019-03-22 02:36 | NUR ---
AMBULATES/VOIDED Patient ambulates with walker to restroom to void. Patient was safely assisted back to bed. No signs of respiratory distress and discomfort noted. HOB raised. 0xygen at 1.5L via nasal cannula, attached and secured. Safety precautions in place. Will continue to monitor.
[2019-03-22] MEDS: LEVOTHYROXINE SODIUM 0.1 MG TABLET PO SCH (06:17)
[2019-03-22] MEDS: LEVOTHYROXINE SODIUM 0.075 MG TABLET PO SCH (06:17)
--- NOTE | 2019-03-22 06:34 | NUR ---
CLOSING NOTES Patient awake, sitting up in bed. No signs of respiratory distress and discomfort noted. HOB raised. Denies pain and discomfort at this time. On 1.5L of oxygen via nasal cannula, attached and secured. IV site, patency noted. Call light within reach. Safety precautions in place. All needs met throughout the shift. Will continue to monitor until endorsed to on oncoming shift nurse for continuity of care.
--- NOTE | 2019-03-22 08:00 | NUR ---
RN INITIAL NOTES RECEIVED PATIENT IN BED LYING NOT IN DISTRESS , VERBAL AND HOB SLIGHTLY ELEVATED, PATIENT NO COMPLAIN OF PAIN , SATING 97% ADVISED DEEP BREATHING AND PATIENT COOPERATES WITH CARE
[2019-03-22] MEDS: IPRATROPIUM/ALBUTEROL SULFATE 3 ML AMPUL.NEB (DUONEB) INH SCH ×5 (08:04→23:25)
[2019-03-22 08:38] LABS: BASOPHILS # (AUTO) 0.1 K/uL (0.0-0.2); BASOPHILS % (AUTO) 1.9 % (0.0-2.0); EOSINOPHILS # (AUTO) 0.4 K/uL (0.0-0.4); EOSINOPHILS % (AUTO) 6.5 % (0.0-4.0); HEMATOCRIT 29.4 % (36-54); HEMOGLOBIN 9.5 g/dL (14.0-18.0); LYMPHOCYTES % (AUTO) 16.6 % (20.5-51.5); MEAN CORPUSCULAR HEMOGLOBIN 31 pg (27-31); MEAN CORPUSCULAR HGB CONC 32 % (32-36); MEAN CORPUSCULAR VOLUME 95 fL (79.0-98.0); MONOCYTES # (AUTO) 0.5 K/uL (0.0-1.0); MONOCYTES % (AUTO) 8.3 % (1.7-9.3); NEUTROPHILS % (AUTO) 66.7 % (40.0-70.0); PLATELET COUNT (AUTO) 283 K/uL (130-430); RED BLOOD CELL COUNT(AUTO) 3.09 MIL/uL (4.2-6.2); RED CELL DISTRIBUTION WIDTH 16.4 % (9.0-15.0)
[2019-03-22 09:05] LABS: CALCIUM 9.6 mg/dL (8.4-11.0); CREATININE 0.94 mg/dL (0.55-1.30); POTASSIUM 3.6 mmol/L (3.5-5.1)
[2019-03-22] MEDS: ENOXAPARIN SODIUM 40 MG/0.4 ML SYRINGE SUBCUT SCH ×2 (09:09→20:56)
[2019-03-22] MEDS: EMOLLIENT COMBINATION NO.73 78 GM CREAM..G. TP SCH ×2 (09:11→20:54)
--- NOTE | 2019-03-22 12:30 | NUR ---
ROUNDS PATIENT EATING HIS LUNCH AND NO COMPLAIN OF PAIN
--- NOTE | 2019-03-22 14:00 | NUR ---
ROUNDS PATIENT AMBULATING WITH HIS FWW NO DISTRESS
--- NOTE | 2019-03-22 14:01 | NUR ---
Nutrition F/U RD reviewed pt's current EMR including diet Hx, physician notes, nursing notes, pertinent labs/meds/procedures, care trends and care activity. Current Diet Order: Cardiac diet x 11 days Subjective information: Pt is due for follow up. Per EMR, last BM 03/18 x1, on nasal cannula and was seen by Numerical Control Machine Operator on 03/20 and was documented to have chronic wounds of unknown etiology. Pt may benefit from Campbell for wound healing and improved skin integrity. Pt continues to eat 1/2 portions of meals, records indicate 37% of meals x 2 days. Current PO intake: Fair 67% Estimated Energy Expenditure (kcals/day) 2875-1001 kcal/day (MSJ x 1-1.2 for critical illness and obesity) Estimated Protein Required (g/day) 50-74 gm/day (0.8-1.2 gm/kg IBW for CKD, predialysis/critical illness) Estimated Fluid Required (l/day) Per MD (CKD) Problem/Etiology/Signs/Symptoms (modified) Morbid Obesity r/t lifestyle factors AEB BMI 56.6 kg/m2, 250% of IBW, and sedentary behavior. *ongoing Expected Outcomes/Goals Monitor appetite and PO intake w/ goal of pt meeting at least 75% of estimated nutritional needs, labs trending WNL, normal GI function, skin integrity/wt maintenance. Dietitian Recommendations * Recommend Campbell BID for wound healing. * Continuing cardiac diet * 1/2 portions at meal times TID per pt preference Follow Up Moderate Risk: F/U in 3-5 days
--- NOTE | 2019-03-22 14:05 | NUR ---
Dietitian Recommendations * Recommend Campbell BID for wound healing. * Continuing cardiac diet * 1/2 portions at meal times TID per pt preference Please see Nutrition F/U note for details. ROSE, RD
--- NOTE | 2019-03-22 16:03 | NUR ---
ROUNDS PATIENT NOT IN ANY DISTRESS , SKETCHING WITH HIS ARTS IN THE BED ,AMBULATES NEEDED WITH STEADY GAIT USING FWW
--- NOTE | 2019-03-22 17:45 | NUR ---
ROUNDS PATIENT NOT IN ANY DISTRESS , RESP EVEN AND UNLABORED
--- NOTE | 2019-03-22 19:06 | NUR ---
ENDORSEMENT ENDORSE PATIENT TO GABRIELLE MCHUGH IN STABLE CONDITION, AMBULATES WITH FWW, NO COMPLAIN OF PAIN, SATING 97%
--- NOTE | 2019-03-22 19:15 | NUR ---
change of shift.pt.presents quiescent affect;calm,ambulating w/in the room.pt.presents general status stable.respiratory status stable;unlabored@room air. no c/o pain,nausea,call light/telephone w/in reach of the pt.pt.utilizing the urinal.activity status;oob/brp;as tolerated.call light/ telephone w/in reach of the pt.
--- NOTE | 2019-03-22 20:00 | NUR ---
pt.assessed.v/s assessed;values w/in normal limits.o2-sat%=93%@room air.no c/o pain,nausea.i have apprised the pt.that i may provide snacks/beverages w/in the shift.pt.requested cranberry/apple juice.i have provided the apple juice x2.general status stable.respiratory status stable;unlabored.call light/telephone w/in reach of the pt.i have attended to the urinal/measured/cleaned placed w/in the reach of the pt.
--- NOTE | 2019-03-22 21:00 | NUR ---
2100pmedications administered;lovenox.pt.requested juice;cranberry/apple.i have provided the cranberry juice x2.no additional requests posited @this hour.
--- NOTE | 2019-03-22 22:00 | NUR ---
pt.assessed.pt.presents quiescent affect;calm,resting.i have attended to the urinal:measured/cleaned placed w/in reach of the pt. o2-sat%=92%.i have re-iterated to the pt.to utilize the o2 therapy via nasal cannulae;o2sat% is low.pt requests juice;apple/cranberry;i have provided the apple juice x2.no c/o pain,nausea.general status stable.respiratory status stable;unlabored.call light/telephone w/in reach of the pt.
[2019-03-23] VITALS: BP_SYST 111
--- NOTE | 2019-03-23 | NUR ---
pt.assessed.v/s assessed;values w/in normal limits.o2-sat%=93%@room air.re-iterated to the pt to utilize the o2 therapy via nasal cannulae.pt.presents propensity to present low value %of the o2-sat%.respiratory status stable;unlabored.breathing pattern /character stable.pt.presents no c/o pain,nausea.no requests posited@this hour.call light/telephone w/in reach of the pt.urinal w/in reach of the pt.
--- NOTE | 2019-03-23 02:00 | NUR ---
pt.assessed.pt.present quiescent affect;calm,somnolent.o2-sat%=94%.pt utilizing the nasal cannulae.general status stable.respiratory status stable.i have inspected the urinal;clean.w/in reach of the pt.pt.capable to reposition self.call light/telephone w/in reach of the pt.
[2019-03-23] MEDS: IPRATROPIUM/ALBUTEROL SULFATE 3 ML AMPUL.NEB (DUONEB) INH SCH ×6 (02:39→23:13)
--- NOTE | 2019-03-23 03:00 | NUR ---
pt.had spilled th urinal content upon the bed.i have attended to the linen change.
--- NOTE | 2019-03-23 04:00 | NUR ---
pt.assessed.pt.presents quiescent affect;calm,somnolent.general status stable.respiratory status stable;unlabored:o-2sat%=93%. pt.capable to reposition self.i have inspected the urinal;clean.call light/telephone w/in reach of the pt.
[2019-03-23] MEDS: LEVOTHYROXINE SODIUM 0.1 MG TABLET PO SCH (06:27)
[2019-03-23] MEDS: LEVOTHYROXINE SODIUM 0.075 MG TABLET PO SCH (06:27)
--- NOTE | 2019-03-23 06:31 | NUR ---
pt.assessed.pt.presents quiescent affect;calm,resting.no c/o pain,nausea.no requests posited@this hour.i have inspected the urinal/clean w/in reach of the pt.i have administered synthroid:07a00a dose.general status stable,respiratory status stable;slight labored:02-sat%=93%@room air.pt.capable t reposition self.call light/telephone w/in reach of the pt. Addendum: 03/23/19 at 0644 by Alexis Fried RN i have weighed the pt.in am;2/t chf history.
[2019-03-23 08:00] VITALS: BP_SYST 94
--- NOTE | 2019-03-23 08:00 | NUR ---
ASSUMPTION OF CARE: RECEIVED PT A/A/OX4, DX: INADEQUATE VENTILATION, R/T RESPIRATORY DISTRESS, SOB. PT IS AFEBRILE, NO S/S OF DISTRESS, VS WNL, BREATH SOUNDS ARE CLEAR, BREATHING UNLABORED, SATURATING 91-92% ORA, NO C/O PAIN OR DISCOMFORT, IV SITE INTACT, PATENT, NO REDNESS OR SWELLING, ORIENTED TO CALL LIGHT, PLACED WITHIN REACH, WILL CONT' TO MONITOR AND ASSESS.
[2019-03-23 08:45] LABS: ALBUMIN 4.2 g/dL (3.4-4.8); CALCIUM 9.8 mg/dL (8.4-11.0); CREATININE 1.04 mg/dL (0.55-1.30); POTASSIUM 3.7 mmol/L (3.5-5.1); TOTAL BILIRUBIN 0.3 mg/dL (0.0-1.0)
[2019-03-23 08:47] LABS: BASOPHILS # (AUTO) 0.1 K/uL (0.0-0.2); BASOPHILS % (AUTO) 1.8 % (0.0-2.0); EOSINOPHILS # (AUTO) 0.4 K/uL (0.0-0.4); EOSINOPHILS % (AUTO) 5.9 % (0.0-4.0); HEMATOCRIT 28.4 % (36-54); HEMOGLOBIN 9.2 g/dL (14.0-18.0); LYMPHOCYTES # (AUTO) 1.1 K/uL (1.0-5.5); LYMPHOCYTES % (AUTO) 16.4 % (20.5-51.5); MEAN CORPUSCULAR HEMOGLOBIN 31 pg (27-31); MEAN CORPUSCULAR HGB CONC 33 % (32-36); MEAN CORPUSCULAR VOLUME 95 fL (79.0-98.0); MONOCYTES # (AUTO) 0.6 K/uL (0.0-1.0); NEUTROPHILS # (AUTO) 4.3 K/uL (1.8-7.7); NEUTROPHILS % (AUTO) 65.9 % (40.0-70.0); PLATELET COUNT (AUTO) 279 K/uL (130-430); RED CELL DISTRIBUTION WIDTH 16.7 % (9.0-15.0); WHITE BLOOD COUNT (AUTO) 6.5 K/uL (4.8-10.8)
--- NOTE | 2019-03-23 09:00 | NUR ---
MACHINE PRECISION ETCHER: MORNING MEDS GIVEN, PER ORDERED BY Jose Elias, TOLERATED WELL, WILL CONT' WITH POC.
[2019-03-23] MEDS: ENOXAPARIN SODIUM 40 MG/0.4 ML SYRINGE SUBCUT SCH ×2 (09:06→21:13)
[2019-03-23] MEDS: EMOLLIENT COMBINATION NO.73 78 GM CREAM..G. TP SCH ×2 (09:07→21:12)
--- NOTE | 2019-03-23 09:50 | NUR ---
VISIT: AT BEDSIDE FOR ASSESSMENT OF PT, DISCUSSED POC, PT VERBALIZES UNDERSTANDING,NEW ORDERS GIVEN, WILL CONT' TO MONITOR AND ASSESS.
--- NOTE | 2019-03-23 10:28 | NUR ---
Discharge Planning: Made nurse aware pt needs to have a Oxy Walk done to home oxygen, DCP took nurse a form to feel out results left with [employer] social secretary. Addendum: 03/23/19 at 1213 by Maya Ray DP Patient nurse did the Oxy walk with patient, DCP faxed form filled out with Oxygen reading to Saba (C [phone]) at [place] p [phone]). Addendum: 03/23/19 at 1700 by Maya Ray DP GOLDY spoke to [facility] at [place] (f [phone] p [phone]), patients insurance closed for holiday can not be verified.
--- NOTE | 2019-03-23 12:00 | NUR ---
NURSES NOTES: PT EVALUATED BY PHYSICAL THERAPIST (KARI), 1) O2 SAT WHILE RESTING IN BED ON 2L O2 VIA NC=94-96%, 2)RESTING WHILE ON ROOM AIR=91-93%, 3)WALKING ON ROOM AIR=82-83%, 4)POST AMBULATING ON ROOM AIR=85-86%, 5)AND POST AMBULATING PLACED ON O2 2L VIA NC=95-96%
[2019-03-23 12:50] VITALS: BP_SYST 100
--- NOTE | 2019-03-23 15:00 | NUR ---
NURSES NOTES: PT OOB INTO CHAIR, TOLERATING WELL, FEET ELEVATED ON PILLOW, NO DISTRESS, DENIES HAVING PAIN OR DISCOMFORT, CALL LIGHT PLACED WITHIN REACH, WILL CONT' WITH POC.
[2019-03-23 16:54] VITALS: BP_SYST 108
--- NOTE | 2019-03-23 18:00 | NUR ---
END OF SHIFT: PT REMAINS STABLE, NEEDS MET, CALL LIGHT PLACED WITHIN REACH, TELEPHONE NEXT TO BED, WILL CONT' TO MONITOR, WILL ENDORSE TO GRIPPER ATTACHER NURSE.
[2019-03-23 19:00] VITALS: BP_SYST 113
--- NOTE | 2019-03-23 19:15 | NUR ---
change of shift.pt.presents quiescent affect;calm,resting.no c/o pain,nausea.general status stable.respiratory status stable. i have attended to the urinal:measured/cleaned place w/in reach of the pt.call light/telephone w/in reach of the pt.
[2019-03-23 20:00] VITALS: BP_SYST 113
--- NOTE | 2019-03-23 20:00 | NUR ---
pt.assessed.v/s assessed.values w/in normal limits.the o2-sat%noted low value;93%@room air.i have apprised the pt.that i may provide snacks/beverages w/in the shift.pt.requested juice.i have provided apple juice x2.no c/o pain,nausea.pt. capable to reposition self/ambulate w/w/out the walker.general status stable.respiratory status stable.call light/telephone w/in reach of the pt.
--- NOTE | 2019-03-23 21:00 | NUR ---
2100p medications administered.pt.had requested ice water.i have provided the ice water.
--- NOTE | 2019-03-23 22:00 | NUR ---
pt.assessed.pt.presents quiescent affect;calm,resting i have attended to the urinal;measured;cleaned.placed w/in reach of the pt.o c/o pain,nausea.pt had requested juice.i have provided the juice;applex2.general status stable.respiratory status stable;02-sat%=93%pt,.capable to reposition self.call light/telephone w/in reach of the pt
[2019-03-24] VITALS: BP_SYST 115
--- NOTE | 2019-03-24 | NUR ---
pt.assessed.v/s assessed.values w/in normal limits;o2-sat%=93%.no c/o pain,nausea.no requests posited@this hour. i have attended to the urinal:measured/emptied.placed w/in reach of the pt.no c/o pain,nausea.pt.capable to reposition self.call light/telephone placed w/in reach of the pt.
--- NOTE | 2019-03-24 02:00 | NUR ---
pt.assessed.pt.presents quiescent affect;calm,somnolent.general status stable;unlabored.02-sat=93%.pt.capable to reposition self. i have inspected urinal/cleaned w/in reach of the pt.call light/telephone w/in reach of the pt.
[2019-03-24] MEDS: IPRATROPIUM/ALBUTEROL SULFATE 3 ML AMPUL.NEB (DUONEB) INH SCH ×6 (03:00→23:18)
--- NOTE | 2019-03-24 04:00 | NUR ---
pt.assessed.pt.had requested juice/water.i have provided both items.i have inspected the urinal/clean.w/in reach of the pt.no c/o pain,nausea.general status stable.respiratory status stable.unlabored;02-sat%=93%.pt.capable to reposition self.call light/telephone w/in reach of th pt.
[2019-03-24] MEDS: LEVOTHYROXINE SODIUM 0.075 MG TABLET PO SCH (05:34)
[2019-03-24] MEDS: LEVOTHYROXINE SODIUM 0.1 MG TABLET PO SCH (05:34)
--- NOTE | 2019-03-24 06:30 | NUR ---
pt.assessed.pt. presents quiescent affect;clam,resting.i administered the synthroid:0700a dose.no requests posited@this hour. pt.capable to reposition self,i have attended to the urinal:measured/cleaned.call light.telephone w/in reach of the pt.
[2019-03-24 07:24] LABS: BASOPHILS # (AUTO) 0.1 K/uL (0.0-0.2); BASOPHILS % (AUTO) 1.1 % (0.0-2.0); EOSINOPHILS # (AUTO) 0.4 K/uL (0.0-0.4); EOSINOPHILS % (AUTO) 5.2 % (0.0-4.0); HEMATOCRIT 29.8 % (36-54); HEMOGLOBIN 9.7 g/dL (14.0-18.0); LYMPHOCYTES # (AUTO) 1.3 K/uL (1.0-5.5); LYMPHOCYTES % (AUTO) 18.7 % (20.5-51.5); MEAN CORPUSCULAR HEMOGLOBIN 31 pg (27-31); MEAN CORPUSCULAR HGB CONC 33 % (32-36); MEAN CORPUSCULAR VOLUME 95 fL (79.0-98.0); MONOCYTES # (AUTO) 0.7 K/uL (0.0-1.0); MONOCYTES % (AUTO) 9.5 % (1.7-9.3); NEUTROPHILS # (AUTO) 4.6 K/uL (1.8-7.7); NEUTROPHILS % (AUTO) 65.5 % (40.0-70.0); PLATELET COUNT (AUTO) 292 K/uL (130-430); RED BLOOD CELL COUNT(AUTO) 3.15 MIL/uL (4.2-6.2); RED CELL DISTRIBUTION WIDTH 16.5 % (9.0-15.0)
--- NOTE | 2019-03-24 07:30 | NUR ---
Opening note patient resting in bed at this time, A/Ox4, no complaints of pain. No SOB. Iv patent, intact. No infiltration noted. On safety and aspiration precautions, HOB kept elevated, 3 side rails up, call light within reach. patient in stable condition. Will continue to monitor.
[2019-03-24 08:00] VITALS: BP_SYST 128
[2019-03-24 08:02] LABS: CREATININE 0.99 mg/dL (0.55-1.30); POTASSIUM 3.8 mmol/L (3.5-5.1)
[2019-03-24] MEDS: ENOXAPARIN SODIUM 40 MG/0.4 ML SYRINGE SUBCUT SCH ×2 (08:40→21:22)
[2019-03-24] MEDS: EMOLLIENT COMBINATION NO.73 78 GM CREAM..G. TP SCH ×2 (08:41→21:23)
--- NOTE | 2019-03-24 09:00 | NUR ---
medications All morning medications given as ordered. No adverse side effects noted.
--- NOTE | 2019-03-24 11:14 | NUR ---
PHYSICAL THERAPY CO-SIGN The Physical Therapy Progress Notes documented by Contact Acid Plant Operator have been reviewed. Reviewed/Co-Signed by: Clayton Sorensen PT Documentation Done by: OG GARNER PTA Addendum: 03/24/19 at 1116 by Clayton Sorensen PT Amended: Links added.
--- NOTE | 2019-03-24 11:15 | NUR ---
PHYSICAL THERAPY CO-SIGN The Physical Therapy Progress Notes documented by Oxygraph Operator have been reviewed. Reviewed/Co-Signed by: Clayton Sorensen PT Documentation Done by: EDUARDO WALL PTA Addendum: 03/24/19 at 1116 by Clayton Sorensen PT Amended: Links added.
--- NOTE | 2019-03-24 11:20 | NUR ---
rounds patient resting in bed at this time, no complaints of pain. offered to assist patient to the restroom, patient declined need. no other needs at this time.
[2019-03-24 12:00] VITALS: BP_SYST 126
--- NOTE | 2019-03-24 13:30 | NUR ---
Lunch patient sitting up in bed at this time, eating lunch. No nausea, no vomiting. No complaints of pain.
--- NOTE | 2019-03-24 14:13 | NUR ---
[place] NOTES NAME: Jesu Novak : 1965 ORDERING PHYS: Moshe Castillo DIAGNOSIS: Respiratory Failure SPO2% BEFORE EXERCISE ON RA: 94% SPO2% WHILE AMBULATED: 85% SPO2% during exercise on 2LPM recovered to 95% 2L while ambulating. PERSONNEL WHO PERFORMED TESTING: Jose PERSONNEL TITLE: Physical Therapy DATE: 03/24/19
--- NOTE | 2019-03-24 15:45 | NUR ---
rounds patient sitting up in bed at this time, offered to assist patient to the restroom, patient denied need. no other needs at this time.
[2019-03-24 16:00] VITALS: BP_SYST 131
--- NOTE | 2019-03-24 17:30 | NUR ---
rounds patient resting in bed at this time, urinal emptied. Linens changed. no other needs at this time.
--- NOTE | 2019-03-24 18:26 | NUR ---
Closing note patient resting in bed at this time, no complaints of pain. No SOB. Iv patent, intact. No infiltration noted. On safety and aspiration precautions, HOB kept elevated, 3 side rails up, call light within reach. patient in stable condition. All needs met.
[2019-03-24 20:00] VITALS: BP_SYST 96
[2019-03-25] MEDS: IPRATROPIUM/ALBUTEROL SULFATE 3 ML AMPUL.NEB (DUONEB) INH SCH ×6 (03:00→22:44)
[2019-03-25] MEDS: LEVOTHYROXINE SODIUM 0.1 MG TABLET PO SCH (05:16)
[2019-03-25] MEDS: LEVOTHYROXINE SODIUM 0.075 MG TABLET PO SCH (05:16)
--- NOTE | 2019-03-25 06:13 | NUR ---
Patient in bed. No acute distress noted. No complained of pain or discomfort. Will continue to monitor.
[2019-03-25 08:00] VITALS: BP_SYST 111
[2019-03-25] MEDS: ENOXAPARIN SODIUM 40 MG/0.4 ML SYRINGE SUBCUT SCH ×2 (08:13→20:31)
[2019-03-25] MEDS: EMOLLIENT COMBINATION NO.73 78 GM CREAM..G. TP SCH ×2 (08:15→20:34)
--- NOTE | 2019-03-25 09:00 | NUR ---
medications All morning medications given as ordered. No adverse side effects noted.
--- NOTE | 2019-03-25 10:43 | NUR ---
Discharge Planning: GOLDY faxed the Certificate of Medical Necessity for Oxygen requiring a doctor signature, requested the form to be faxed back. GOLDY will then faxed to [facility]. Addendum: 03/25/19 at 1527 by Maya Ray DP GOLDY followed up on form faxed to Dr Lucia at (f [phone]) not received yet, GOLDY HERNANDEZ.
--- NOTE | 2019-03-25 11:00 | NUR ---
wound care Wound care done as ordered. No adverse side effects. No complaints of pain.
[2019-03-25 12:28] VITALS: BP_SYST 113
--- NOTE | 2019-03-25 13:30 | NUR ---
rounds pictures taken of lower extremity wound. No other needs at this time.
--- NOTE | 2019-03-25 15:30 | NUR ---
rounds patient requested towels, provided. water pitcher refilled, no other needs at this time.
[2019-03-25 16:02] VITALS: BP_SYST 137
[2019-03-25 16:49] VITALS: BP_SYST 137
--- NOTE | 2019-03-25 17:01 | NUR ---
rounds Patient ambulating inside the room with steady gait. no other needs at this time.
--- NOTE | 2019-03-25 18:17 | NUR ---
closing note patient resting in bed at this time, A/Ox4, no complaints of pain. No SOB. Iv patent, intact. No infiltration noted. On safety and aspiration precautions, HOB kept elevated, 3 side rails up, call light within reach. patient in stable condition. All needs met
--- NOTE | 2019-03-25 19:30 | NUR ---
Initial Notes Received handoff report from offgoing nurse at the bedside. Patient is AAOx4, resting comfortably in bed. No SOB, no acute distress. Currently without oxygen via nasal cannula and tolerating well, O2 Sat 94%. Bed is locked, lowest position, 2x side rails up, bed alarm is on. Call light within reach. Encouraged patient to call for assistance.
--- NOTE | 2019-03-25 22:26 | NUR ---
Patient resting comfortably in bed. Respiratory therapist currently at the bedside. No SOB, no acute distress, no complaints of pain at this time. Bed is locked, lowest position, 2x side rails up, bed alarm is on. Call light is within reach. Encouraged patient to call for assistance. Will continue with plan of care.
[2019-03-25 23:03] VITALS: BP_SYST 112
[2019-03-26] VITALS: BP_SYST 108
--- NOTE | 2019-03-26 00:50 | NUR ---
Patient resting comfortably in bed, eyes closed. Breathing even and unlabored with visible chest rise and fall noted. No SOB, no acute distress, no signs of pain or facial grimacing noted. Bed is locked, lowest position, 2x side rails up, bed alarm is on. Call light within reach.
--- NOTE | 2019-03-26 02:17 | NUR ---
Patient ambulated to restroom and back to bed independently without assistance. Now resting comfortably in bed. Encouraged to call for assistance.
--- NOTE | 2019-03-26 04:45 | NUR ---
PATIENT RESTING IN BED, EYES CLOSED. BREATHING EVEN AND UNLABORED. VISIBLE CHEST RISE AND FALL NOTED. NO SOB, NO ACUTE DISTRESS, NO SIGNS OF PAIN OR FACIAL GRIMACING NOTED. BED IS LOCKED, LOWEST POSITION, 2X SIDE RAILS UP. BED ALARM IS ON. CALL LIGHT WITHIN REACH.
[2019-03-26] MEDS: LEVOTHYROXINE SODIUM 0.075 MG TABLET PO SCH (06:07)
[2019-03-26] MEDS: LEVOTHYROXINE SODIUM 0.1 MG TABLET PO SCH (06:07)
[2019-03-26 06:24] LABS: CREATININE 0.89 mg/dL (0.55-1.30)
--- NOTE | 2019-03-26 06:30 | NUR ---
PATIENT RESTING COMFORTABLY IN BED, AAOX4. NO SOB, NO ACUTE DISTRESS, NO SIGNS OF PAIN OR FACIAL GRIMACING NOTED. BED IS LOCKED, LOWEST POSITION, 2X SIDE RAILS UP, BED ALARM IS ON. CURRENTLY ON 1.5L O2 NC AND TOLERATING WELL. CALL LIGHT IS WITHIN REACH. ENCOURAGED PATIENT TO CALL FOR ASSISTANCE. Addendum: 03/26/19 at 0632 by Ene Ibarra RN CONTINUATION OF NOTES WILL ENDORSE CARE TO ONCOMING DAYSDEFT NURSE.
[2019-03-26 06:58] LABS: CALCIUM 9.5 mg/dL (8.4-11.0); POTASSIUM 3.8 mmol/L (3.5-5.1)
[2019-03-26] MEDS: IPRATROPIUM/ALBUTEROL SULFATE 3 ML AMPUL.NEB (DUONEB) INH SCH ×5 (07:42→23:09)
--- NOTE | 2019-03-26 08:05 | NUR ---
PHYSICAL THERAPY CO-SIGN The Physical Therapy Progress Notes documented by Medical Director/Head Team Physician have been reviewed. Reviewed/Co-Signed by: Clayton Sorensen PT Documentation Done by: EDUARDO WALL PTA Addendum: 03/26/19 at 0807 by Clayton Sorensen PT Amended: Links added.
--- NOTE | 2019-03-26 08:06 | NUR ---
PHYSICAL THERAPY CO-SIGN The Physical Therapy Progress Notes documented by Locomotive Boilermaker have been reviewed. Reviewed/Co-Signed by: Clayton Sorensen PT Documentation Done by: EDUARDO WALL PTA Addendum: 03/26/19 at 0807 by Clayton Sorensen PT Amended: Links added.
[2019-03-26] MEDS: ENOXAPARIN SODIUM 40 MG/0.4 ML SYRINGE SUBCUT SCH ×2 (08:25→20:27)
[2019-03-26] MEDS: EMOLLIENT COMBINATION NO.73 78 GM CREAM..G. TP SCH ×2 (08:26→20:30)
--- NOTE | 2019-03-26 08:27 | NUR ---
Routine Scheduled medications given per order. Patient resting comfortably in bed with no complaint of pain. Patient stable.
[2019-03-26 08:30] VITALS: BP_SYST 110
--- NOTE | 2019-03-26 10:05 | NUR ---
Patient using walker to ambulate in hallway with PT.
[2019-03-26 12:00] VITALS: BP_SYST 113
--- NOTE | 2019-03-26 12:50 | NUR ---
Routine Patient resting comfortably in bed with no respiratory distress noted. Patient denies any pain at this time. Patient stable.
--- NOTE | 2019-03-26 14:20 | NUR ---
Routine Patient resting comfortably in bed with no respiratory distress. Denies any pain at this time. Patient stable.
--- NOTE | 2019-03-26 14:24 | NUR ---
Attended rapid response. Provided support to friend. Addendum: 03/27/19 at 1051 by Sade Ledezma LCSW Please disregard above note; entered in error.
--- NOTE | 2019-03-26 15:07 | NUR ---
report endorsed by curtis for continuation of care.
[2019-03-26 16:27] VITALS: BP_SYST 106
--- NOTE | 2019-03-26 17:17 | NUR ---
RN ROUNDING PATIENT IS AWAKE AND ALERT SITTING UP IN BED. TALKING WITH VOLUNTEER. PATIENT HAS NO COMPLAINTS AT THIS TIME. ALL SAFETY PRECAUTIONS IN PLACE. EDUCATED UROLOGIST MD LIGHT, CALL LIGHT IS WITH PATIENT. NO OTHER NEEDS AT THIS TIME.
--- NOTE | 2019-03-26 18:54 | NUR ---
RN CLOSING NOTE PATIENT IS AWAKE AND ALERT, SITTING UP IN BED, NO SIGNS OF ANY DISTRESS, BREATHING IS EQUAL AND NON LABORED. PATIENT HAS ALL SAFETY PRECAUTIONS IN PLACE. EDUCATED GRADUATE INTERN LIGHT FOR ASSISTANCE, CALL LIGHT IS WITH PATIENT. PATIENT HAS FAMILY AT BEDSIDE. PATIENT HAS NO COMPLAINTS AT THIS TIME.
--- NOTE | 2019-03-26 19:30 | NUR ---
Opening notes Received report. Patient resting in bed. No signs of distress noted. Breathing even and unlabored. On RA patient 90%. 2L NC placed O2 sat 97%. Patient to receive breathing treatment. IV patent and intact, no signs of infiltration noted. No needs at this time. Call light with the patient. Safety precautions in place.
[2019-03-26 20:12] VITALS: BP_SYST 112
--- NOTE | 2019-03-26 20:48 | NUR ---
Medications given. Educated the action and side effects of medications. Patient verbalized understanding and tolerated well. No other needs at this time. Patient tidying up room, offered help, patient states he can do by himself. No signs of distress noted. Breathing even and unlabored. Call light within reach.
--- NOTE | 2019-03-26 23:00 | NUR ---
Resting Patient is resting in bed, drawing pictures. No signs of distress noted. Breathing even and unlabored on 2 L NC. No needs at this time. Call light with the patient. Safety precautions in place.
[2019-03-27 00:32] VITALS: BP_SYST 114
--- NOTE | 2019-03-27 01:37 | NUR ---
Resting Patient resting in bed, performing arm exercises. No signs of distress noted. Breathing even and unlabored. Provided patient with apple juice and warm blanket. No other needs. Call light with the patient. Safety precautions in place.
[2019-03-27] MEDS: IPRATROPIUM/ALBUTEROL SULFATE 3 ML AMPUL.NEB (DUONEB) INH SCH ×6 (03:00→23:00)
--- NOTE | 2019-03-27 04:30 | NUR ---
Sleeping No signs of distress noted. Breathing even and unlabored. Call light with the patient. Safety precautions in place.
[2019-03-27] MEDS: LEVOTHYROXINE SODIUM 0.075 MG TABLET PO SCH (06:03)
[2019-03-27] MEDS: LEVOTHYROXINE SODIUM 0.1 MG TABLET PO SCH (06:03)
--- NOTE | 2019-03-27 06:29 | NUR ---
Closing notes Patient resting comfortably in bed. No signs of distress noted. Breathing even and unlabored. IV patent and intact, no signs of infiltration noted. All needs met throughout the shift. Call light with the patient. Safety precautions in place. Will endorse care to day shift RN.
[2019-03-27 07:30] LABS: CALCIUM 9.3 mg/dL (8.4-11.0); CREATININE 0.89 mg/dL (0.55-1.30); POTASSIUM 4.3 mmol/L (3.5-5.1)
--- NOTE | 2019-03-27 07:35 | NUR ---
opening note patient is resting in bed, alert and oriented, no signs of distress at this time, educated professional bass fisher light system and plan of care, patient verbalized understanding, patient didn't want nasal cannula on at this time, 90% on room air, no other needs addressed at this time, brake armed, bed in lowest position, two side rails up, bed alarm on, room close to station, fall/safety precautions in place. Addendum: 03/27/19 at 0812 by Tori Caceres RN incorrect entry, room not close to station
[2019-03-27 07:37] LABS: BASOPHILS # (AUTO) 0.1 K/uL (0.0-0.2); EOSINOPHILS # (AUTO) 0.3 K/uL (0.0-0.4); HEMOGLOBIN 8.8 g/dL (14.0-18.0); MONOCYTES # (AUTO) 0.7 K/uL (0.0-1.0); RED CELL DISTRIBUTION WIDTH 16.4 % (9.0-15.0)
[2019-03-27 07:57] LABS: HEMATOCRIT 26.5 % (36-54); LYMPHOCYTES # (AUTO) 1.2 K/uL (1.0-5.5); LYMPHOCYTES % (AUTO) 17.6 % (20.5-51.5); MEAN CORPUSCULAR HEMOGLOBIN 31 pg (27-31); MEAN CORPUSCULAR HGB CONC 33 % (32-36); MEAN CORPUSCULAR VOLUME 94 fL (79.0-98.0); MONOCYTES % (AUTO) 10.9 % (1.7-9.3); NEUTROPHILS # (AUTO) 4.4 K/uL (1.8-7.7); NEUTROPHILS % (AUTO) 65.5 % (40.0-70.0); PLATELET COUNT (AUTO) 257 K/uL (130-430); RED BLOOD CELL COUNT(AUTO) 2.81 MIL/uL (4.2-6.2); WHITE BLOOD COUNT (AUTO) 6.6 K/uL (4.8-10.8)
[2019-03-27 08:00] VITALS: BP_SYST 119
[2019-03-27] MEDS: EMOLLIENT COMBINATION NO.73 78 GM CREAM..G. TP SCH ×2 (08:39→20:22)
[2019-03-27] MEDS: ENOXAPARIN SODIUM 40 MG/0.4 ML SYRINGE SUBCUT SCH ×2 (08:40→20:18)
--- NOTE | 2019-03-27 10:28 | NUR ---
rounds patient is resting in bed, using music player, patient walked with PT earlier and tolerated well, no signs of distress at this time, no needs addressed at this time, fall/safety precautions in place.
[2019-03-27 12:15] VITALS: BP_SYST 106
--- NOTE | 2019-03-27 12:15 | NUR ---
patient eating lunch patient in bed eating lunch, has his nasal cannula on at 2L, no signs of distress at this time, no needs addressed at this time, fall/safety precautions in place.
--- NOTE | 2019-03-27 14:33 | NUR ---
Nutrition F/U RD reviewed pt's current EMR including diet Hx, physician notes, nursing notes, pertinent labs/meds/procedures, care trends and care activity. MHx: MD notes acute respiratory failure improved, now awaiting home oxygen. Current Diet Order: Cardiac Diet + Campbell BID x 5 days PO intake: 80% x 8 meals Subjective information: Pt continues wound care to chronic wounds, Campbell BID in place to help support skin integrity. PO intake remains fairly good per EMR documentation. Pt asleep upon RD visit, lunch tray 100% consumed at bedside with opened Campbell packets. No signs of distress. Estimated Energy Expenditure (kcals/day) 4911-0658 kcal/day (MSJ x 1-1.2 for critical illness and obesity) Estimated Protein Required (g/day) 50-74 gm/day (0.8-1.2 gm/kg IBW for CKD, predialysis/critical illness) Estimated Fluid Required (l/day) Per MD (CKD) Problem/Etiology/Signs/Symptoms (modified) Morbid Obesity r/t lifestyle factors AEB BMI 56.6 kg/m2, 250% of IBW, and sedentary behavior. *ongoing Increased nutrition needs related to chronic wounds of unknown etiology as evidenced by wound evaluation report *new Expected Outcomes/Goals Monitor appetite and PO intake w/ goal of pt meeting at least 75% of estimated nutritional needs, labs trending WNL, normal GI function, skin integrity/wt maintenance. Dietitian Recommendations * Continue Campbell BID for wound healing. * Continuing cardiac diet Follow Up Moderate Risk: F/U in 3-5 days
--- NOTE | 2019-03-27 14:36 | NUR ---
Dietitian Recommendations * Continue Campbell BID for wound healing. * Continuing cardiac diet Please see Nutrition Follow Up for further details. LT, RD
--- NOTE | 2019-03-27 14:45 | NUR ---
rounds patient resting in bed, requesting for linen to be changed, no other needs at this time, no signs of distress, fall/safety precautions in place.
--- NOTE | 2019-03-27 15:52 | NUR ---
spoke to Jelani about home O2, no update yet.
[2019-03-27 16:04] VITALS: BP_SYST 129
--- NOTE | 2019-03-27 16:28 | NUR ---
DC Planning: Per GABRIELLE Valle, repeat ABG is still critical values. The pt will need home o2 set up. LM for weekend CM to f/u.
--- NOTE | 2019-03-27 16:36 | NUR ---
critical abgs informed Dr Lima and CM about patient's critical abgs and per Dr Lima patient still needs home O2, informed the patient about this, no signs of distress at this time, no other needs addressed at this time, skin care was done, fall/safety precautions in place.
--- NOTE | 2019-03-27 18:40 | NUR ---
closing note patient is resting in bed, no signs of distress at this time, on 2L nasal cannula, no other needs addressed at this time, brake armed, bed in lowest position, two side rails up, room close to station, fall/safety precautions in place, will endorse report to noc shift nurse to continue with care, still awaiting for update on home O2 delivery, follow up with CM/DCP tomorrow on it, there is a written prescription in the patient's chart from Dr Lucia when patient is ready to be discharged.
--- NOTE | 2019-03-27 20:00 | NUR ---
INITIAL NOTES: PT IS ALERT AND ORIENTED ; NOT IN ANY ACUTE DISTRESS; VITALS ARE STABLE ; ON O2 2L NC , SAT 96% ;PT IS ABLE TO AMBULATE WITH WALKER ; DENIED ANY PAIN OR SOB AT THIS TIME; ASSESSMENT DONE ; IV ON THE LEFT HAND 22 G SL , NO S/S OF ANY INFILTRATION NOTICED ; CALL GUTIERREZ IN REACH . BED IN LOW AND LOCK POSITION , ENCOURAGED PT TO CALL FOR ASSIST ; WILL CONTINUE TO MONITOR PT.
[2019-03-27 20:10] VITALS: BP_SYST 104
--- NOTE | 2019-03-27 20:18 | NUR ---
MEDICATION: DUE MEDS GIVEN PER REPORT , EDUCATED PT ON LOVENOX AND GIVEN SUBQ TO THE ABDOMEN ; FEET CLEANED AND APPLIED EUCERIN CREAM ; DRY SCABS CLEANED AND APPLIED BETADINE PER ORDER .
--- NOTE | 2019-03-27 21:05 | NUR ---
TRANSFER OF CARE: REPORT GIVEN TO CHAPO ANTHONY AT BEDSIDE , PT IS COMFORTABLE ; DRAWING AT THIS TIME ; ALL NEEDS MET .
--- NOTE | 2019-03-27 21:06 | NUR ---
TRANSFER OF CARE Received pt and endorsement from GABRIELLE Faye. Pt is AAOx4, lying in bed. Pt is on saline lock on left hand G22. No complains of pain at this time. No signs of acute distress or SOB noted. Encouraged to use call light when needed. Safety precautions in place with 3 side rails up, wheels locked, bed in lowest level. Call light with pt. Will continue to monitor.
--- NOTE | 2019-03-27 23:55 | NUR ---
ROUNDS Pt is AAOx4, lying in bed while listening to his phone. No complains of pain and no signs of acute distress noted. Safety precautions in place and call light with pt. Will continue to monitor.
[2019-03-28 00:11] VITALS: BP_SYST 100
--- NOTE | 2019-03-28 03:18 | NUR ---
ROUNDS Pt is AAOx4, lying in bed while watching tv. No signs of acute distress noted. No needs at this time. Safety precautions in place and call light with pt. Will continue to monitor.
[2019-03-28] MEDS: IPRATROPIUM/ALBUTEROL SULFATE 3 ML AMPUL.NEB (DUONEB) INH SCH ×6 (03:30→23:44)
[2019-03-28] MEDS: LEVOTHYROXINE SODIUM 0.075 MG TABLET PO SCH (06:24)
[2019-03-28] MEDS: LEVOTHYROXINE SODIUM 0.1 MG TABLET PO SCH (06:24)
--- NOTE | 2019-03-28 06:59 | NUR ---
CLOSING NOTES Pt accidentally dislodged IV, new IV inserted by GABRIELLE Felder on right forearm G22, with good blood return and flushable with saline. Pt tolerated well. No complains of pain at this time. No signs of acute distress or SOB noted. All needs attended throughout the shift. Safety precautions maintained with 2 side rails up, wheels locked, and bed in lowest level. Call light with pt. Will endorse to day shift nurse.
[2019-03-28 07:04] LABS: BASOPHILS # (AUTO) 0.1 K/uL (0.0-0.2); BASOPHILS % (AUTO) 1.9 % (0.0-2.0); EOSINOPHILS # (AUTO) 0.3 K/uL (0.0-0.4); EOSINOPHILS % (AUTO) 4.4 % (0.0-4.0); HEMATOCRIT 26.5 % (36-54); HEMOGLOBIN 8.7 g/dL (14.0-18.0); LYMPHOCYTES # (AUTO) 1.1 K/uL (1.0-5.5); LYMPHOCYTES % (AUTO) 18.2 % (20.5-51.5); MEAN CORPUSCULAR HEMOGLOBIN 31 pg (27-31); MEAN CORPUSCULAR HGB CONC 33 % (32-36); MEAN CORPUSCULAR VOLUME 94 fL (79.0-98.0); MONOCYTES # (AUTO) 0.6 K/uL (0.0-1.0); MONOCYTES % (AUTO) 10.5 % (1.7-9.3); NEUTROPHILS # (AUTO) 3.9 K/uL (1.8-7.7); PLATELET COUNT (AUTO) 246 K/uL (130-430); RED BLOOD CELL COUNT(AUTO) 2.83 MIL/uL (4.2-6.2); RED CELL DISTRIBUTION WIDTH 16.3 % (9.0-15.0)
--- NOTE | 2019-03-28 07:22 | NUR ---
OPENING NOTE Patient resting in the bed with eyes closed. No acute distress. On O2 2L/min via NC. Skin warm and dry to touch. SL intact to RFA, no redness, no swelling. Safety measure maintained. Call light within reached. Bed locked in low position, side rails up, bed alarm on. Will continue to monitor.
[2019-03-28 07:48] LABS: CALCIUM 9.3 mg/dL (8.4-11.0); CREATININE 0.8 mg/dL (0.55-1.30); POTASSIUM 4.2 mmol/L (3.5-5.1)
[2019-03-28 07:55] VITALS: BP_SYST 101
[2019-03-28] MEDS: EMOLLIENT COMBINATION NO.73 78 GM CREAM..G. TP SCH ×2 (08:58→20:15)
[2019-03-28] MEDS: ENOXAPARIN SODIUM 40 MG/0.4 ML SYRINGE SUBCUT SCH ×2 (09:00→20:16)
[2019-03-28 09:01] VITALS: BP_SYST 100
--- NOTE | 2019-03-28 09:25 | NUR ---
SITTING IN THE CHAIR Patient sitting in the chair at bedside. No acute distress. Safety measure maintained. Assisted back to bed. safety measure maintained. Call light within reached. Bed locked in low position, side rails up. Continue to monitor.
--- NOTE | 2019-03-28 11:08 | NUR ---
ROUND Patient resting in the bed. No acute distress. Continue on O2 2L/min 2L/min via NC. Safety measure maintained. Call light within reached. Bed locked in low position, side rails up, bed alarm on. Continue to monitor.
[2019-03-28] MEDS ORDERED: acetaZOLAMIDE 250 MG TABLET (DIAMOX) PO ONE (11:15)
[2019-03-28 11:17] VITALS: BP_SYST 120
--- NOTE | 2019-03-28 12:57 | NUR ---
ROUND Patient resting in the bed with eyes closed. No acute distress. Continue on O2 via NC. Safety measure maintained. Call light within reached. Bed locked in low position, side rails up, bed alarm on. Continue to monitor.
--- NOTE | 2019-03-28 14:50 | NUR ---
ROUND Patient resting in the bed with eyes closed. No acute distress. Continue on O2 2L/min 2L/min via NC. Safety measure maintained. Call light within reached. Bed locked in low position, side rails up, bed alarm on. Continue to monitor.
[2019-03-28 15:10] VITALS: BP_SYST 130
--- NOTE | 2019-03-28 16:24 | NUR ---
SLEEPING Patient sleeping in the bed. No acute distress. Continue on O2 2L/min 2L/min via NC. Safety measure maintained. Call light within reached. Bed locked in low position, side rails up, bed alarm on. Continue to monitor.
--- NOTE | 2019-03-28 18:56 | NUR ---
CLOSING NOTE Patient resting in the bed with eyes closed. No acute distress. Continue on O2 2L/min via NC. Skin warm and dry to touch. SL intact to RFA, no redness, no swelling, patent. All needs met. Safety measure maintained. Call light within reached. Bed locked in low position, side rails up, bed alarm on. Will endorse to night nurse.
--- NOTE | 2019-03-28 19:45 | NUR ---
Opening Note Received report from claribel RN, patient resting in bed, awake, A/Ox3, even and unlabored breathing on 2L NC, IV to right FA intact and saline locked, no complaints of pain, safety and fall precautions in place, patient refused bed alarm despite education, will reinforce education, bed locked and in lowest position, two side rails up, call light with patient, will continue to monitor.
[2019-03-28 20:00] VITALS: BP_SYST 106
--- NOTE | 2019-03-28 20:16 | NUR ---
Medications Patient is resting in bed, no signs of acute distress, educated patient on 2100 scheduled medications uses and potential side effects, patient able to verbalize understanding, administered medications per MD order, patient tolerated well, safety and fall precautions in place, call light with patient, will continue to monitor.
[2019-03-29] VITALS: BP_SYST 109
--- NOTE | 2019-03-29 00:15 | NUR ---
RN Rounds Patient is resting in bed, no signs of acute distress, no complaints of pain, midnight vitals WNL, tolerating 2L NC, IV is saline locked and intact, patent/benign, safety and fall precautions in place, call light with patient, will continue to monitor.
--- NOTE | 2019-03-29 02:20 | NUR ---
RN Rounds Patient is resting in bed, no complaints of pain, no signs of acute distress, tolerating 2L NC, IV is saline locked and intact, patent/benign, safety and fall precautions in place, call light with patient, will continue to monitor.
--- NOTE | 2019-03-29 04:10 | NUR ---
RN Rounds Patient is resting in bed, eyes closed, no signs of acute distress, tolerating 2L NC, IV intact, safety and fall precautions in place, call light with patient, will continue to monitor.
--- NOTE | 2019-03-29 06:50 | NUR ---
Closing Note Patient resting in bed, awake, even and unlabored breathing on 2L NC, IV to right FA intact and saline locked, no complaints of pain at this time, safety and fall precautions in place, patient refused bed alarm despite education, bed locked and in lowest position, two side rails up, call light with patient, will endorse care to dayshift RN.
[2019-03-29] MEDS: LEVOTHYROXINE SODIUM 0.1 MG TABLET PO SCH (06:52)
[2019-03-29] MEDS: LEVOTHYROXINE SODIUM 0.075 MG TABLET PO SCH (06:53)
[2019-03-29] MEDS: IPRATROPIUM/ALBUTEROL SULFATE 3 ML AMPUL.NEB (DUONEB) INH SCH ×5 (07:57→23:09)
[2019-03-29 08:00] VITALS: BP_SYST 132
--- NOTE | 2019-03-29 08:00 | NUR ---
Opening note patient resting in bed, a/ox4, denies pain, denies shortness of breath, IV line is patent, no s/s of infiltration, patient is on 2L nasal cannula at this time, assessment complete, educated [facility] system and plan of care, he verbalized understanding, bed in lowest position, two side rails up, call light placed within reach, fall and aspiration precautions in place.
[2019-03-29 08:02] LABS: CALCIUM 9.4 mg/dL (8.4-11.0); CREATININE 0.86 mg/dL (0.55-1.30)
[2019-03-29 08:03] LABS: BASOPHILS # (AUTO) 0.1 K/uL (0.0-0.2); BASOPHILS % (AUTO) 1.3 % (0.0-2.0); EOSINOPHILS # (AUTO) 0.3 K/uL (0.0-0.4); EOSINOPHILS % (AUTO) 4.1 % (0.0-4.0); HEMATOCRIT 28.3 % (36-54); HEMOGLOBIN 9.3 g/dL (14.0-18.0); MEAN CORPUSCULAR HEMOGLOBIN 31 pg (27-31); MEAN CORPUSCULAR HGB CONC 33 % (32-36); MEAN CORPUSCULAR VOLUME 95 fL (79.0-98.0); MONOCYTES # (AUTO) 0.7 K/uL (0.0-1.0); MONOCYTES % (AUTO) 10.5 % (1.7-9.3); NEUTROPHILS # (AUTO) 4.8 K/uL (1.8-7.7); NEUTROPHILS % (AUTO) 70.1 % (40.0-70.0); PLATELET COUNT (AUTO) 265 K/uL (130-430); RED BLOOD CELL COUNT(AUTO) 2.98 MIL/uL (4.2-6.2); RED CELL DISTRIBUTION WIDTH 16.3 % (9.0-15.0); WHITE BLOOD COUNT (AUTO) 6.8 K/uL (4.8-10.8)
[2019-03-29] MEDS: acetaZOLAMIDE 250 MG TABLET (DIAMOX) PO SCH (08:59)
[2019-03-29] MEDS: ENOXAPARIN SODIUM 40 MG/0.4 ML SYRINGE SUBCUT SCH ×2 (08:59→22:10)
[2019-03-29] MEDS: EMOLLIENT COMBINATION NO.73 78 GM CREAM..G. TP SCH ×2 (09:00→22:14)
--- NOTE | 2019-03-29 10:50 | NUR ---
RN rounds patient resting in bed, denies pain, denies shortness of breath, no needs at this time, continuing to monitor, bed in lowest position, two side rails up, call light within reach, fall and aspiration precautions in place .
[2019-03-29 12:05] VITALS: BP_SYST 127
--- NOTE | 2019-03-29 12:05 | NUR ---
RN rounds patient resting in bed, awake, eating lunch, aspiration precautions in place, patient denies pain, on 2L nasal cannula, continuing to monitor, bed in lowest position, two side rails up, call light within reach, fall precautions in place.
--- NOTE | 2019-03-29 15:05 | NUR ---
RN rounds patient resting in bed, denies pain, denies shortness of breath, on 2L via nasal cannula at this time, no needs at this time, continuing to monitor, bed in lowest position, two side rails up, call light within reach, fall and aspiration precautions in place.
--- NOTE | 2019-03-29 17:19 | NUR ---
RN rounds patient resting in bed, awake, denies pain, denies shortness of breath, patient is without oxygen at this time, continuing to monitor, bed in lowest position, two side rails up, call light within reach, fall and aspiration precautions in place .
[2019-03-29 20:00] VITALS: BP_SYST 126
--- NOTE | 2019-03-29 21:00 | NUR ---
PT RECIEVED ALERT AND ORIENTED X3 . VITAL SIGN STABLE . PT IS OBESE . SKIN INTACT , PT WILL BE MONITORED VITAL SIGN . WILL CONTINUE TO MONITOR VITAL SIGN ,
--- NOTE | 2019-03-30 | NUR ---
PT SLEEPING SOUNDLY .VITAL SIGN STABLE . WILL CONTINUE TO MONITOR PT NECESSARY..
[2019-03-30 00:22] VITALS: BP_SYST 132
[2019-03-30] MEDS: IPRATROPIUM/ALBUTEROL SULFATE 3 ML AMPUL.NEB (DUONEB) INH SCH ×6 (03:00→23:00)
--- NOTE | 2019-03-30 05:00 | NUR ---
PT MONITORED FOR ANY COMPLAIN OF CHEST PAIN ,AND CHEST PAIN . WILL CONTINUE TO MONITOR PT .
[2019-03-30] MEDS: LEVOTHYROXINE SODIUM 0.1 MG TABLET PO SCH (06:22)
[2019-03-30] MEDS: LEVOTHYROXINE SODIUM 0.075 MG TABLET PO SCH (06:23)
[2019-03-30 07:25] LABS: BASOPHILS # (AUTO) 0.1 K/uL (0.0-0.2); BASOPHILS % (AUTO) 1.2 % (0.0-2.0); EOSINOPHILS # (AUTO) 0.3 K/uL (0.0-0.4); EOSINOPHILS % (AUTO) 3.9 % (0.0-4.0); HEMOGLOBIN 9.2 g/dL (14.0-18.0); LYMPHOCYTES # (AUTO) 1.1 K/uL (1.0-5.5); LYMPHOCYTES % (AUTO) 15.2 % (20.5-51.5); MEAN CORPUSCULAR HEMOGLOBIN 31 pg (27-31); MEAN CORPUSCULAR HGB CONC 33 % (32-36); MEAN CORPUSCULAR VOLUME 94 fL (79.0-98.0); MONOCYTES # (AUTO) 0.7 K/uL (0.0-1.0); MONOCYTES % (AUTO) 10.5 % (1.7-9.3); NEUTROPHILS # (AUTO) 4.8 K/uL (1.8-7.7); NEUTROPHILS % (AUTO) 69.2 % (40.0-70.0); PLATELET COUNT (AUTO) 283 K/uL (130-430); RED BLOOD CELL COUNT(AUTO) 2.97 MIL/uL (4.2-6.2); RED CELL DISTRIBUTION WIDTH 16.6 % (9.0-15.0)
[2019-03-30 07:39] LABS: CALCIUM 9.4 mg/dL (8.4-11.0); CREATININE 0.83 mg/dL (0.55-1.30); POTASSIUM 3.9 mmol/L (3.5-5.1)
--- NOTE | 2019-03-30 08:00 | NUR ---
ASSUMPTION OF CARE: RECEIVED PT A/A/OX4, DX: INADEQUATE VENTILATION, R/T RESPIRATORY DISTRESS, SOB. PT IS AFEBRILE, NO S/S OF DISTRESS, VS WNL, BREATH SOUNDS ARE CLEAR, BREATHING UNLABORED, SATURATING 99% WHILE TAKING BREATHING TX, NO C/O PAIN OR DISCOMFORT, IV SITE INTACT, PATENT, NO REDNESS OR SWELLING, ORIENTED TO CALL LIGHT, PLACED WITHIN REACH, WILL CONT' TO MONITOR AND ASSESS.
--- NOTE | 2019-03-30 09:00 | NUR ---
ECOLOGIST TECHNICIAN: MORNING MEDS GIVEN, PER ORDERED BY Jose Elias, TOLERATED WELL, WILL CONT' WITH POC.
[2019-03-30] MEDS: acetaZOLAMIDE 250 MG TABLET (DIAMOX) PO SCH (09:16)
[2019-03-30] MEDS: ENOXAPARIN SODIUM 40 MG/0.4 ML SYRINGE SUBCUT SCH ×2 (09:18→20:27)
[2019-03-30] MEDS: EMOLLIENT COMBINATION NO.73 78 GM CREAM..G. TP SCH ×2 (09:20→20:31)
--- NOTE | 2019-03-30 10:30 | NUR ---
Discharge Planning: DCP placed a copy of forms for Oxygen walk, DCP spoke to PT and asked if the form could be filled out accordingly and Necessity for Oxygen for doctor to sign. DCP made charge nurse aware. Addendum: 03/30/19 at 1658 by Maya NOBLES DCP received Oxygen walk filled out by PT, Necessity for Oxygen form signed for [facility] (f [phone] p [phone]) DCP faxed both forms and updated labs with [facility]. [place] to follow up
--- NOTE | 2019-03-30 10:55 | NUR ---
PHYSICAL THERAPY CO-SIGN The Physical Therapy Progress Notes documented by Field Service Technician have been reviewed. Reviewed/Co-Signed by: Clayton Sorensen PT Documentation Done by: Jose Villalpando PTA Addendum: 03/30/19 at 1058 by Clayton Sorensen PT Amended: Links added.
--- NOTE | 2019-03-30 10:57 | NUR ---
PHYSICAL THERAPY CO-SIGN The Physical Therapy Progress Notes documented by Cam Specialist have been reviewed. Reviewed/Co-Signed by: Clayton Sorensen PT Documentation Done by: Jose Villalpando PTA Addendum: 03/30/19 at 1058 by Clayton Sorensen PT Amended: Links added.
[2019-03-30 12:24] VITALS: BP_SYST 137
--- NOTE | 2019-03-30 14:00 | NUR ---
NURSES NOTES: PT REMAINS STABLE, NO SIGNIFICANT CHANGES NOTED, NO S/S OF DISTRESS, NO REQUEST MADE AT THIS TIME, NEEDS MET, WILL CONT' WITH POC.
[2019-03-30 15:11] VITALS: BP_SYST 138
--- NOTE | 2019-03-30 16:20 | NUR ---
WOUND RE-EVALUATION: Patient received in a [place] Bed with an IsoFlex SALIMA mattress, awake, alert, and oriented. Patient is able to turn in bed independently. Gilbert Score is a 19. Past Medical History: Severe obesity. Recent Labs: WBC 6.1, RBC 2.93, hemoglobin 9.1, hematocrit 28.0, ESR 80, BUN 9, creatinine 0.95, GFR 87, glucose 118, albumin 4.5. Microbiology: MRSA screen results negative. Intrinsic factors that delay wound healing: Obesity. Extrinsic factors that delay wound healing: Decreased mobility. Wound Assessment: 1. Left distal weems: Chronic wound of unknown etiology, present on admission. Wound bed has 95% dark yellow scab, 5% black scab. No odor, no drainage. Periwound intact. Dry, stable. Wound measures 1.5 cm x 2.3 cm. Recommend continue: No dressing needed. Biehle site with Betadine daily. Continue to monitor site every shift. 2. Left great toe: Dry, scaly skin with fissures with dark coloration on top, present on admission. 3. Left heel: Dry, scaly skin with fissures with dark coloration on top, present on admission. 4. Right great toe: Dry, scaly skin with fissures with dark coloration on top, present on admission. 5. Right heel: Dry, scaly skin with fissures with dark coloration on top, present on admission. Recommend continue: Cleanse involved areas with mild soap and water. Pat dry. Apply Eucerin cream to involved areas. Perform site care twice a day. 6. Right distal weems: Chronic wound of unknown etiology, present on admission. Wound bed has 100% black scab. No odor, no drainage. Periwound intact. Dry, stable. 7. Right lateral lower extremity, inferior and lateral to site 6: Chronic wound of unknown etiology, present on admission. Wound bed has 100% yellow scab. No odor, no drainage. Periwound intact. Dry, stable. 8. Right lateral lower extremity, inferior to site 7: Chronic wound of unknown etiology, present on admission. Wound bed has dark discolored hard skin with a small black scab. No odor, no drainage. Periwound intact. Dry, stable. 9. Right great toe: Chronic wound of unknown etiology, present on admission. Wound bed has 100% black scab. No odor, no drainage. Periwound intact. Dry, stable. 10. Left great toe: Chronic wound of unknown etiology, present on admission. Wound bed has 100% black scab. No odor, no drainage. Periwound intact. Dry, stable. Recommend continue: No dressings needed. Biehle sites with Betadine daily. Continue to monitor sites every shift. Also recommend continue: Encourage and assist patient as needed with repositioning every 2 hours with pillow support and off-load pressure areas with pillows for pressure re-distribution. Offload, elevate and float bilateral heels with pillows. Perform skin care and monitor skin integrity Q shift. Use moisture barrier cream on buttocks and other moisture susceptible areas QID and as needed for soiling.
--- NOTE | 2019-03-30 18:00 | NUR ---
END OF SHIFT: PT REMAINS STABLE, NEEDS MET, CALL LIGHT PLACED WITHIN REACH, TELEPHONE NEXT TO BED, WILL CONT' TO MONITOR, WILL ENDORSE TO STATION COOK NURSE.
--- NOTE | 2019-03-30 19:45 | NUR ---
A/A/O X4.GROSSLY OBESE.DENIES ANY DISCOMFORT @ THIS TIME.NOTED BILATERAL LOWER EXTREMITIES REDDENED AND WITH WITH OLD SCAB.INSTRUCTED TO USE CALL LIGHT NEEDED;WITHIN REACH.
[2019-03-30 20:00] VITALS: BP_SYST 115
--- NOTE | 2019-03-30 22:00 | NUR ---
WATCHING TV.VOIDING FREELY THRU THE URINAL.CALL LIGHT WITHIN REACH.
[2019-03-31] VITALS: BP_SYST 120
--- NOTE | 2019-03-31 | NUR ---
V/S STABLE.AFEBRILE.DENIES SOB.
--- NOTE | 2019-03-31 02:00 | NUR ---
SNACKS GIVEN PER PT'S REQUEST.
[2019-03-31] MEDS: IPRATROPIUM/ALBUTEROL SULFATE 3 ML AMPUL.NEB (DUONEB) INH SCH ×4 (03:00→15:22)
--- NOTE | 2019-03-31 04:00 | NUR ---
RESTING COMFORTABLY IN NO ACUTE DISTRESS.
--- NOTE | 2019-03-31 06:00 | NUR ---
IV SL ACCIDENTALLY PULLED BY PT.IV INSERTED ON HIS LEFT HAND WITH ANGIO #20 X2.
[2019-03-31] MEDS: LEVOTHYROXINE SODIUM 0.1 MG TABLET PO SCH (06:26)
[2019-03-31] MEDS: LEVOTHYROXINE SODIUM 0.075 MG TABLET PO SCH (06:26)
--- NOTE | 2019-03-31 06:55 | NUR ---
ENDORSED RESTING COMFORTABLY IN NO ACUTE DISTRESS.CALL LIGHT WITHIN REACH.SAFETY MAINTAINED.
[2019-03-31 07:35] LABS: BASOPHILS # (AUTO) 0.1 K/uL (0.0-0.2); BASOPHILS % (AUTO) 1.5 % (0.0-2.0); EOSINOPHILS # (AUTO) 0.3 K/uL (0.0-0.4); EOSINOPHILS % (AUTO) 4.1 % (0.0-4.0); HEMATOCRIT 27.9 % (36-54); HEMOGLOBIN 9.1 g/dL (14.0-18.0); LYMPHOCYTES # (AUTO) 1.1 K/uL (1.0-5.5); MEAN CORPUSCULAR HEMOGLOBIN 31 pg (27-31); MEAN CORPUSCULAR HGB CONC 33 % (32-36); MEAN CORPUSCULAR VOLUME 95 fL (79.0-98.0); MONOCYTES # (AUTO) 0.7 K/uL (0.0-1.0); MONOCYTES % (AUTO) 9.8 % (1.7-9.3); NEUTROPHILS # (AUTO) 4.6 K/uL (1.8-7.7); NEUTROPHILS % (AUTO) 68.6 % (40.0-70.0); PLATELET COUNT (AUTO) 299 K/uL (130-430); RED BLOOD CELL COUNT(AUTO) 2.95 MIL/uL (4.2-6.2); RED CELL DISTRIBUTION WIDTH 16.3 % (9.0-15.0); WHITE BLOOD COUNT (AUTO) 6.7 K/uL (4.8-10.8)
[2019-03-31 08:00] VITALS: BP_SYST 80
[2019-03-31 08:10] LABS: CREATININE 0.86 mg/dL (0.55-1.30); POTASSIUM 3.8 mmol/L (3.5-5.1)
[2019-03-31] MEDS: ENOXAPARIN SODIUM 40 MG/0.4 ML SYRINGE SUBCUT SCH (08:47)
[2019-03-31] MEDS: acetaZOLAMIDE 250 MG TABLET (DIAMOX) PO SCH (08:49)
[2019-03-31] MEDS: EMOLLIENT COMBINATION NO.73 78 GM CREAM..G. TP SCH (08:55)
[2019-03-31 09:43] VITALS: BP_SYST 120
--- NOTE | 2019-03-31 10:47 | NUR ---
Discharge Planning: CARLEENP spoke to patient to confirm address to deliver oxygen, [address] [facility] [address] patients fathers home [place] [phone]. GOLDY spoke to Saba at [facility] (f [phone] p [phone]) gave him the address and phone number DCP will follow up. Addendum: 03/31/19 at 1228 by Maya Ray DP GOLDY followed up with patients father Gus Novak [phone], regarding oxygen delivery. Kem from [place] will deliver between 12:30 pm to 2:30pm. GOLDY made CM aware and patient. Addendum: 03/31/19 at 1241 by Maya Ray DP CARLEENP confirmed with Saba delivery for home and for portable to patient bedside for discharge.
[2019-03-31 12:00] VITALS: BP_SYST 136
[2019-03-31 16:46] VITALS: BP_SYST 128
--- NOTE | 2019-03-31 18:07 | NUR ---
PORTABLE O2 STILL WAITING ON THE PORTABLE O2 TO BE DELIVERED AT BEDSIDE. PATIENT WOULD LIKE TO GO HOME. PATIENT IS STABLE AND HAS BEEN ON ROOM AIR SITTING ON THE CHAIR IN HIS ROOM 02 SAT AT 94% THE WHOLE AFTERNOON. PATIENT WILL WAIT FOR THE PRTABLE O2 AT HOME. CALLED [facility] WHO WILL DELIVER PORTABLE O2 AT PATIENTS RESIDENCE PROVIDED
--- NOTE | 2019-04-09 12:22 | NUR ---
Discharge Follow Up Phone Call DERMATOLOGY PROCEDURAL PHYSICIAN phoned patient, , and left a voicemail message with no patient identifying information. Asked for information as to if there were any problems with the delivery of the O2, if patient attended a follow up appointment at [facility], and encouraged patient to follow up on the [facility] application. Offered assistance and Social Service contact information.
== END 2019-03-31 18:00 | disposition home or self-care (01) | DRG 133 ==
LOC: SED 12:49 → SIC 17:26 → STU 03-11 17:57 → SIC 03-11 20:43 → STU 03-14 19:11 → SMU 03-18 17:49
PROVIDERS: ADMIT Preventive Medicine Preventive Medicine/Occupational Environmental Medicine; ATTEND Preventive Medicine Preventive Medicine/Occupational Environmental Medicine
PROC: 5A09357 Assistance with Respiratory Ventilation, Less than 24 Consecutive Hours, Continuous Positive Airway Pressure (ICD-10-PCS; principal; 2019-03-09)
PROC: 5A09357 Assistance with Respiratory Ventilation, Less than 24 Consecutive Hours, Continuous Positive Airway Pressure (ICD-10-PCS; 2019-03-17)
PROC: 5A09357 Assistance with Respiratory Ventilation, Less than 24 Consecutive Hours, Continuous Positive Airway Pressure (ICD-10-PCS; 2019-03-26)
DX: J96.21 Acute and chronic respiratory failure with hypoxia (principal); E87.2 Acidosis; L03.115 Cellulitis of right lower limb; I27.81 Cor pulmonale (chronic); E66.2 Morbid (severe) obesity with alveolar hypoventilation; E87.1 Hypo-osmolality and hyponatremia; G20 Parkinson's disease; I13.0 Hypertensive heart and chronic kidney disease with heart failure and stage 1 through stage 4 chronic kidney disease, or unspecified chronic kidney disease; Z68.43 Body mass index [BMI] 50.0-59.9, adult; J96.22 Acute and chronic respiratory failure with hypercapnia; I50.9 Heart failure, unspecified; J44.9 Chronic obstructive pulmonary disease, unspecified; N18.9 Chronic kidney disease, unspecified; I89.0 Lymphedema, not elsewhere classified; L03.116 Cellulitis of left lower limb; D64.9 Anemia, unspecified; E03.9 Hypothyroidism, unspecified; E87.6 Hypokalemia; L30.9 Dermatitis, unspecified; L85.3 Xerosis cutis; Z60.2 Problems related to living alone; Z79.899 Other long term (current) drug therapy; Z87.891 Personal history of nicotine dependence
CPT/HCPCS: 36415; 36600; 71045; 71275; 80048; 80053; 82803-TC; 83735-TC; 83880; 84100-TC; 84439; 84443-TC; 84484; 85007; 85025; 85027; 85610-TC; 85651-TC; 85730-TC; 86140; 87081; 93005; 93306; 93970; 94640; 94660; 94760; 97110-GP; 97112-GP; 97116-GP; 97530-GP; 99291; G0378; J0461; J0696; J1265; J1650; J1940; J7060; J7620; Q9967